=== PATIENT | male | born 1945 | race Caucasian/White ===

== ENCOUNTER → 2018-04-05 12:22 | Outpatient (CLI) | payer MEDICARE, OTHER, SELFPAY ==
--- NOTE | 2018-04-05 | DI.RAD.S_ITS ---
PROCEDURE: XR CHEST 2V INDICATIONS: DYSPENEA TECHNIQUE: 2 views of the chest were acquired. COMPARISON: [facility], CT, CT ANGIO CHEST ABD, 06/20/2017, 20:24. [facility], CR, CHEST 2VW, 01/09/2013, 15:27. FINDINGS: Surgical changes and devices: None. Lungs and pleura: No pleural effusions or pneumothorax. Lungs are clear. Mediastinum: Mediastinal contours are normal. Heart size is normal. Unchanged appearance of mild elevated right hemidiaphragm. Bones and chest wall: No suspicious bony abnormalities. Soft tissues appear unremarkable. IMPRESSION: No acute pulmonary process. Dictated by: Yolie Mcneill M.D. on 04/05/2018 at 15:35 Approved by: Yolie Mcneill M.D. on 04/05/2018 at 15:36
--- NOTE | 2018-04-06 16:24 | DI.NM.S_ITS ---
DATE OF SERVICE: 04/05/2018 PROCEDURE: Pharmacologic perfusion study. INDICATIONS: Angina pectoris with known history of anterior wall PR, PCI, hypertension, and hyperlipidemia. RADIOPHARMACEUTICAL: 26.5 mCi of technetium-99m Myoview IV was injected at stress, and 24.3 mCi of technetium-99m Myoview IV was injected at rest. CARDIAC STRESS: Patient underwent pharmacologic perfusion study under the supervision of an attending staff. The patient received IV Lexiscan as per standard protocol. The patient remained hemodynamically stable. Resting blood pressure 140/82, heart rate about 70 beats per minute. During stress, maximum heart rate reported to be 130. Baseline rhythm was sinus with QRS complexes in V1 to V2 with poor R-wave progression. During stress, there were no obvious inducible ischemic changes. There were occasional isolated PVCs without any ventricular tachycardia. Prior to stress test, patient had very mild left chest and upper back pain which remained there; however, 2 to 3 minutes into the recovery, the patient developed left arm heaviness and jaw pain without any ischemic changes on surface EKG. RAW DATA: There appears to be increased subdiaphragmatic activity. GATED STUDY: Resting LV ejection fraction 50% and stress LV ejection fraction about 55% with [id number] anterior wall and anteroapical hypokinesis. No transient ischemic dilatation. TID ratio 1.11, which is within normal limits. Resting LV end-diastolic volume 125 mL. Lung/heart ratio 0.29, which is within normal limits. MYOCARDIAL PERFUSION SCAN: Stress supine, resting supine, and stress prone images were compared to each other. It appears to be that patient has predominantly fixed moderate-sized severe perfusion defect of wwk-yg-zczhor anterior wall extending into the entire anteroapex and some portion of inferoapex as well as distal septum, consistent with njbvpltu-ka-[id number] LAD territory infarction. I don't see any obvious significant reversible ischemia. CONCLUSION: This is an abnormal myocardial perfusion study consistent with moderate-sized severe infarction of jab-ug-cxivlo anterior wall extending into the entire anteroapex, some portion of inferoapex as well as distal septum. There is no obvious reversible ischemia on perfusion scan. In recovery, patient had left arm heaviness and jaw pain suggestive of anginal episode without any ischemic EKG changes. Resting LV ejection fraction 50% and stress LV ejection fraction 55%. Clinical correlation is recommended. David Barnett - ASTRID/coral/javy doc#: [id number]/job#: [id number] dd: 04/06/2018 12:38:00 dt: 04/06/2018 15:05:00 DICTATING /COPIES TO: Brynn Aviles MD COPIES MNE: MAYELIN
== END ==
PROVIDERS: Visit Provider Internal Medicine Cardiovascular Disease
DX: I20.9 Angina pectoris, unspecified (principal); I10 Essential (primary) hypertension; E78.5 Hyperlipidemia, unspecified; R06.00 Dyspnea, unspecified
CPT/HCPCS: 71046; 78452; 93016; 93017; 93018; A9502; J2785

== ENCOUNTER → 2018-09-27 08:59 | Outpatient (CLI) | payer MEDICARE, OTHER, SELFPAY ==
--- NOTE | 2018-09-27 09:02 | DI.RAD.S_ITS ---
PROCEDURE: FL UPPER GI W AIR INDICATIONS: DYSPHAGIA COMPARISON: [facility], [place], [place] YOEL PERF SPECT R&S PHARM, 04/05/2018, 14:50. 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 No suspicious abdominal calcifications. Visualized solid organ contours appear normal. Bony structures appear unremarkable. Esophagus: Esophageal mucosa is normal on air-contrast views. On single-contrast views, there is normal esophageal peristalsis. No strictures, extrinsic mass effects, or diverticula. No hiatal hernia or elicited gastroesophageal reflux. There is normal transit of a calibrated barium tablet through the esophagus. Stomach: The stomach is normally distensible, with normal rugal fold thickness. No mucosal masses or ulcers. Pylorus and duodenal bulb appear normal in morphology. Duodenal folds are normal in thickness as well. IMPRESSION: 1. Normal upper GI exam. 2. The patient reports periodic aspiration episodes. Modified barium swallow with speech pathology may be helpful. Dictated by: Alo Bedoya M.D. on 09/27/2018 at 10:44 Approved by: Alo Bedoya M.D. on 09/27/2018 at 10:47
== END ==
PROVIDERS: Visit Provider Physician Assistant
DX: R13.10 Dysphagia, unspecified (principal)
CPT/HCPCS: 74247

== ENCOUNTER → 2018-10-24 12:45 | Outpatient (CLI) | payer MEDICARE, OTHER, SELFPAY ==
[2018-10-24 14:05] LABS: Estimated Glomerular Filt Rate > 60.0 mL/min (>60)
== END ==
PROVIDERS: Visit Provider Family Medicine
DX: N30.40 Irradiation cystitis without hematuria (principal); Z01.812 Encounter for preprocedural laboratory examination
CPT/HCPCS: 36415; 82565

== ENCOUNTER → 2018-10-26 08:45 | Outpatient (CLI) | payer OTHER, MEDICARE, SELFPAY ==
--- NOTE | 2018-10-26 | DI.CT.S_ITS ---
PROCEDURE: CT ABDOMEN PELVIS WO/W CON INDICATIONS: HEMATURIA TECHNIQUE: Optional 5 mm thick noncontrast images acquired from the diaphragm to the symphysis pubis. After the administration of intravenous contrast, 5 mm thick images acquired from the diaphragm to the symphysis pubis after a 10-minute delay. 2 mm thick coronal and sagittal reformats were then performed of the kidneys and ureters. For radiation dose reduction, the following was used: automated exposure control, adjustment of mA and/or kV according to patient size. COMPARISON: [facility], CT, CT ANGIO CHEST ABD, 06/20/2017, 20:24. FINDINGS: Image quality: Excellent. Lung bases: There is mild dependent atelectasis bilaterally. Heart size is normal. There is coronary arterial vascular calcification. There is a small hiatal hernia. Urinary system: There are 2 to 3 small nonobstructing stones within the left kidney measuring up to 2 mm. A punctate nonobstructing stone is also demonstrated in the right kidney. No hydronephrosis. There is mild nonspecific perinephric stranding redemonstrated bilaterally. There is symmetric bilateral renal enhancement. Multiple left renal cysts appear similar to the prior study. Renal calyces appear normal in morphology when filled with contrast without discrete filling defects. Opacified portions of both ureters demonstrate normal caliber. The urinary bladder is incompletely distended. No calcified bladder stones. Other solid organs: No focal hepatic lesions identified. Gallbladder appears within normal limits without calcified gallstones. Biliary system is non dilated. Pancreas enhances normally. Spleen is normal in size and enhancement. No adrenal nodules. Peritoneum and bowel: Bowel loops demonstrate normal wall thickness and caliber. The appendix is normal in appearance. There is colonic diverticulosis without acute diverticulitis. No free fluid or air. Nodes and vessels: No retroperitoneal or mesenteric adenopathy by size criteria. There is focal ectasia of the abdominal aorta are measuring up to 2.8 cm in anteroposterior dimension which appears stable in size compared to the prior study. 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 Abdominal wall: No ventral hernias. Pelvis: No pathologic free pelvic fluid. No inguinal hernias or adenopathy. Bones: No suspicious bony lesions. No vertebral body compression fractures. IMPRESSION: 1. Bilateral nephrolithiasis without evidence of obstructive uropathy or discrete mass lesions in the renal collecting systems. 2. Limited evaluation of the urinary bladder secondary to incomplete distention and incomplete opacification. Recommend correlation with cystoscopy if clinically indicated. 3. Diverticulosis without acute diverticulitis. 4. 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 Dictated by: Trae Price M.D. on 10/26/2018 at 11:48 Approved by: Trae Price M.D. on 10/26/2018 at 12:05
== END ==
PROVIDERS: PCP Physician Assistant; Visit Provider Family Medicine
DX: R31.9 Hematuria, unspecified (principal); N20.0 Calculus of kidney; N28.1 Cyst of kidney, acquired; K57.90 Diverticulosis of intestine, part unspecified, without perforation or abscess without bleeding; I77.811 Abdominal aortic ectasia
CPT/HCPCS: 74178; Q9967

== ENCOUNTER 2019-01-16 08:30 | Outpatient (RCR) | payer MEDICARE, OTHER, SELFPAY | END 2019-01-16 10:00 | LOC: CAR 08:30 | PROVIDERS: Visit Provider Internal Medicine Cardiovascular Disease | DX: I25.118 Atherosclerotic heart disease of native coronary artery with other forms of angina pectoris (principal) | CPT/HCPCS: 93798 ==

== ENCOUNTER 2020-05-21 15:05 | Emergency (ER) | payer MEDICARE, OTHER, SELFPAY ==
--- NOTE | 2020-05-21 | DI.RAD.S_ITS ---
PROCEDURE: XR SHOULDER LT MIN 2V INDICATIONS: SHOULDER PAIN TECHNIQUE: 3 views of the shoulder were acquired. COMPARISON: None. FINDINGS: Bones: No fractures or dislocations. No suspicious bony lesions. Visualized ribs appear intact. Mild to moderate degenerative changes of the left shoulder joints are present. Soft tissues: No suspicious soft tissue calcifications. IMPRESSION: Degenerative changes of the left shoulder. No fracture. Dictated by: Timmy Schroeder M.D. on 05/21/2020 at 15:10 Approved by: Timmy Schroeder M.D. on 05/21/2020 at 15:10
[2020-05-21 15:12] VITALS: BP 127/59; PULSE 66; RESP 15; TEMP 36.5; O2SAT 96; BMI 36.5
[2020-05-21 15:15] VITALS: BP 127/59; PULSE 65; O2SAT 97
--- NOTE | 2020-05-21 15:21 | DI.RAD.S_ITS ---
PROCEDURE: XR CHEST 1V INDICATIONS: chest pain TECHNIQUE: One view of the chest was acquired. COMPARISON: [facility], CR, XR CHEST 2V, 04/05/2018, 12:33. FINDINGS: Surgical changes and devices: None. Lungs and pleura: Lungs are clear. No pleural effusions or pneumothorax. Mediastinum: Mediastinal contours appear normal. Heart size is normal. Bones and chest wall: No suspicious bony lesions. Overlying soft tissues appear unremarkable. IMPRESSION: No acute disease Dictated by: Checo Deo M.D. on 05/21/2020 at 15:56 Approved by: Checo Doe M.D. on 05/21/2020 at 16:17
[2020-05-21 15:36] LABS: Add Manual Diff / Slide Review NO; Basophils Absolute Auto 0 /uL (0-100); Basophils Percent Auto 0.5 % (0-2); Eosinophils Absolute Auto 300 /uL (0-450); Eosinophils Percent Auto 4.2 % (2-4); Hemoglobin 13.8 g/dL (13.5-17.5); INR 1.1 (0.9-1.3); Lymphocytes Absolute Auto 2000 /uL (1100-4500); Lymphocytes Percent Auto 28.8 % (25-40); Mean Corpuscular HGB Conc 35.5 % (30-36); Mean Corpuscular Hemoglobin 32.1 PG (26-34); Mean Corpuscular Volume 90.3 fL (80-100); Monocytes Absolute Auto 800 /uL (0-900); Monocytes Percent Auto 10.9 % (3-14); Neutrophils Absolute Auto 3900 /uL (1500-7000); Neutrophils Percent Auto 55.6 % (50-75); Platelet Count 139 X10^3/uL (150-400); Prothrombin Time 12.6 SECONDS (10.1-12.7); Red Blood Cell Count 4.31 X10^6/uL (4.5-5.9)
[2020-05-21 15:39] LABS: PTT Partial Thromboplastin Tim 33 SECONDS (26.4-36.2)
[2020-05-21 15:40] LABS: Alanine Aminotransferase 30 IU/L (<50); Albumin 3.9 g/dL (3.5-5.0); Albumin Globulin Ratio 1.4 (1.0-2.8); Alkaline Phosphatase 75 U/L (38-126); Aspartate Aminotransferase 39 IU/L (17-59); BUN Creatinine Ratio 18.3 (6-22); Bilirubin Total 0.6 mg/dL (0.2-1.3); Blood Urea Nitrogen 23 mg/dL (9-20); Calcium 8.8 mg/dL (8.4-10.2); Carbon Dioxide 27 mmol/L (22-32); Chloride 105 mmol/L (98-107); Creatine Kinase 202 U/L (55-170); Estimated Glomerular Filt Rate 55.6 mL/min (>60); Globulin 2.8 g/dL (1.7-4.1); Glucose 87 mg/dL (80-110); HEMOLYSIS < 15 (0-50); Lipase 160 U/L (23-300); Potassium 4.3 mmol/L (3.4-5.1); Sodium 138 mmol/L (137-145); Total Protein 6.7 g/dL (6.3-8.2)
[2020-05-21 15:51] LABS: Troponin I < 0.012 ng/mL (0.01-0.034)
[2020-05-21 15:56] LABS: CKMB % Relative Index 1.6 % (1.5-5.0); Creatine Kinase MB 3.16 ng/mL (<2.37)
[2020-05-21 16:00] VITALS: PULSE 59; RESP 15; O2SAT 96
--- NOTE | 2020-05-21 16:25 | PC.NURSE ---
reports left arm, shoulder and jaw pain. Denies acute chest pain or SOB. History of [facility]
[2020-05-21 16:30] VITALS: PULSE 57; RESP 21; O2SAT 96
--- NOTE | 2020-05-21 16:54 | ED.EXTPRO ---
HPI - Extremity Problem General Chief complaint: Extremity Problem,Nontraumatic Stated complaint: LEFT SHOULDER PAIN Time Seen by Provider: 05/21/20 15:26 Source: patient Mode of arrival: Ambulatory Limitations: no limitations History of Present Illness HPI Narrative: The patient is a 74-year-old male with history of coronary artery disease and 7 stents presenting with left shoulder and arm pain. He says he was in his wood shop holding and working on can things within his arm started hurting. It is definitely worse with movement. He denies numbness tingling or weakness. He did have some jaw discomfort what he was talking to his he said it only lasted briefly. He says it was not cardiac related he said it was only seconds. He actually denies any chest pain or shortness of breath. Pain in his left arm is reproducible. MD Complaint: extremity pain Location: left and upper extremity Radiation: none Related Data Allergies Allergy/AdvReac Type Severity Reaction Status Date / Time niacin Allergy Verified 05/21/20 15:19 Review of Systems Review of Systems Narrative: GENERAL: Denies chills, fatigue, malaise, fever, sweats, travel HEENT: Denies sinus pain, ear pain, sore throat, difficulty swallowing, neck pain RESPIRATORY: Denies dyspnea, cough, wheezing, hemoptysis, sputum. CARDIOVASCULAR: See HPI GASTROINTESTINAL: Denies nausea, vomiting, abdominal pain, diarrhea, constipation, melena. : Denies dysuria, frequency, incontinence, hematuria, urinary retention, flank pain. MUSCULOSKELETAL: See HPI SKIN: No rash, no erythema, no pruritus NEUROLOGIC: Denies weakness, dizziness, headache, numbness, change in speech, confusion PSYCHIATRIC: No concerning psychosocial issues. 12 point review of systems is negative except for those stated above and HPI Patient History Medical History Coronary artery disease (Acute) Social History Smoking Status: Unknown if ever smoked Smoking Status: Unknown if ever smoked alcohol intake frequency: holidays/special occasions only Substance Use Type: does not use Exam Initial Vital Signs Initial Vital Signs: Vital Signs Temperature 97.7 F 05/21/20 15:12 Pulse Rate 66 05/21/20 15:12 Respiratory Rate 15 05/21/20 15:12 Blood Pressure 127/59 L 05/21/20 15:12 Pulse Oximetry 96 05/21/20 15:12 GENERAL: Alert pleasant well-appearing elderly male and in no acute distress. HEENT: Head atraumatic,EOMI, pupils reactive CARDIOVASCULAR: Regular rate and rhythm without murmurs, rubs or gallops. RESPIRATORY: Breath sounds equal bilaterally, no wheezes rales or rhonchi. ABDOMEN: Soft, nontender. Normoactive bowel sounds all 4 quadrants. No guarding or rebound. EXTREMITIES: Normal range of motion, no clubbing or edema. Neurovascularly intact Left shoulder flexion reproduce his pain there is moment that he has pain but he is able to move passed it and get his arm completely above his head. He has good supination pronation at the elbow good flexion extension of the elbow neurovascularly he is intact sensation over the deltoid intact. Palpation of the upper arm reproduces his pain NEUROLOGICAL: Alert and oriented x4.Normal gait and speech. Cranial nerves II through XII grossly intact. SKIN: Warm, dry, no laceration, no petechiae, no rashes or lesions. Course Orders Ordered: ED Orders 05/21/20 15:16 Complete Blood Count AUTO DIFF Stat Comprehensive Metabolic Panel Stat Lipase Stat Partial Thromboplastin Time Stat Prothrombin Time INR Stat Troponin & CK Cardiac Panel Stat 05/21/20 15:21 XR chest 1V Stat EKG-12 Lead Stat Vital Signs Vital signs: Vital Signs - 8 hr 05/21/20 15:12 05/21/20 15:15 05/21/20 16:00 Temperature 97.7 F Pulse Rate 66 65 59 L Respiratory Rate 15 15 Blood Pressure 127/59 L 127/59 L Pulse Oximetry 96 97 96 05/21/20 16:30 05/21/20 17:16 Temperature Pulse Rate 57 L 610 H Respiratory Rate 21 Blood Pressure 137/73 Pulse Oximetry 96 98 MDM - Extremity (Nontraumatic) Lab Data Result diagrams: 05/21/20 15:16 05/21/20 15:16 Labs: Lab Results 05/21/20 05/21/20 05/21/20 Range/Units 15:16 15:16 15:16 WBC 7.0 (4.5-11.0) X10^3/uL RBC 4.31 L (4.5-5.9) X10^6/uL Hgb 13.8 (13.5-17.5) g/dL Hct 39.0 L (41-53) % MCV 90.3 (80-100) fL MCH 32.1 (26-34) PG MCHC 35.5 (30-36) % RDW 13.0 (11.6-14.8) % Plt Count 139 L (150-400) X10^3/uL Neut % (Auto) 55.6 (50-75) % Lymph % (Auto) 28.8 (25-40) % Pike % (Auto) 10.9 (3-14) % Eos % (Auto) 4.2 H (2-4) % Baso % (Auto) 0.5 (0-2) % Neut # (Auto) 3900 (9869-8509) /uL Lymph # (Auto) 2000 (1711-4194) /uL Pike # (Auto) 800 (0-900) /uL Eos # (Auto) 300 (0-450) /uL Baso # (Auto) 0 (0-100) /uL PT 12.6 (10.1-12.7) SECONDS INR 1.1 (0.9-1.3) APTT 33 (26.4-36.2) SECONDS Sodium 138 (137-145) mmol/L Potassium 4.3 (3.4-5.1) mmol/L Chloride 105 (98-107) mmol/L Carbon Dioxide 27 (22-32) mmol/L BUN 23 H (9-20) mg/dL Creatinine 1.26 H (0.66-1.25) mg/dL Estimated GFR 55.6 L (>60) mL/min BUN/Creatinine Ratio 18.3 (6-22) Glucose 87 (80-110) mg/dL Calcium 8.8 (8.4-10.2) mg/dL Total Bilirubin 0.6 (0.2-1.3) mg/dL AST 39 (17-59) IU/L ALT 30 (<50) IU/L Alkaline Phosphatase 75 (38-126) U/L Total Creatine Kinase 202 H (55-170) U/L CK-MB (CK-2) 3.16 H (<2.37) ng/mL CK-MB (CK-2) Rel Index 1.6 (1.5-5.0) % Troponin I < 0.012 (0.01-0.034) ng/mL Total Protein 6.7 (6.3-8.2) g/dL Albumin 3.9 (3.5-5.0) g/dL Globulin 2.8 (1.7-4.1) g/dL Albumin/Globulin Ratio 1.4 (1.0-2.8) Lipase 160 (23-300) U/L Imaging Data CT scan - chest: Radiologist's Impression: PROCEDURE: XR CHEST 1V INDICATIONS: chest pain TECHNIQUE: One view of the chest was acquired. COMPARISON: Located [facility], , XR CHEST 2V, 04/05/2018, 12:33. FINDINGS: Surgical changes and devices: None. Lungs and pleura: Lungs are clear. No pleural effusions or pneumothorax. Mediastinum: Mediastinal contours appear normal. Heart size is normal. Bones and chest wall: No suspicious bony lesions. Overlying soft tissues appear unremarkable. IMPRESSION: No acute disease Dictated by: Checo Doe M.D. on 05/21/2020 at 15:56 Approved by: Checo Doe M.D. on 05/21/2020 at 16:17 Extremity x-ray #1: Radiologist's Impression: PROCEDURE: XR SHOULDER LT MIN 2V INDICATIONS: SHOULDER PAIN TECHNIQUE: 3 views of the shoulder were acquired. COMPARISON: None. FINDINGS: Bones: No fractures or dislocations. No suspicious bony lesions. Visualized ribs appear intact. Mild to moderate degenerative changes of the left shoulder joints are present. Soft tissues: No suspicious soft tissue calcifications. IMPRESSION: Degenerative changes of the left shoulder. No fracture. Dictated by: Timmy Schroeder M.D. on 05/21/2020 at 15:10 ECG Data Attestation EKG: I personally reviewed and interpreted this ECG as follows: Prior ECG tracings: not available for review Interpretation: Normal sinus rhythm rate 59 p.r. interval 186 QRS [address] elevation depression or T-wave inversion no priors to compare MDM Narrative Medical decision making narrative: The pain is likely musculoskeletal it is reproducible with movement and palpation. Troponin and EKG are negative. Recommend follow-up with PCP Discharge Plan Departure Patient Disposition: Home Clinical Impression: Left shoulder strain Qualifiers: Encounter type: initial encounter Qualified Code(s): S46.912A - Strain of unspecified muscle, fascia and tendon at shoulder and upper arm level, left arm, initial encounter Discharge Date/Time: 05/21/20 17:17 Instructions: Shoulder Sprain Activity Restrictions/Additional Instructions: *You have been diagnosed with left shoulder sprain *What to do: At this time I believe this to be musculoskeletal problem rather than cardiac. Recommend ice or heat 30 minutes at a touch of *Continue to take medications as directed Tylenol 650 mg every 4-6 hours if needed for pain *Follow up with your primary care provider in 2-3 days *Return to ER if you should have a chest pain, weakness numbness, tingling or any new, worsening or concerning symptoms Referrals: Shefali Man PA-C [Primary Care Provider] -
[2020-05-21 17:16] VITALS: BP 137/73; PULSE 610; O2SAT 98
== END 2020-05-21 17:17 | disposition home or self-care (01) ==
PROVIDERS: Emergency Provider Emergency Medicine; PCP Physician Assistant
DX: S46.912A Strain of unspecified muscle, fascia and tendon at shoulder and upper arm level, left arm, initial encounter (principal); R07.9 Chest pain, unspecified
CPT/HCPCS: 36415; 71045; 73030; 80053; 82550; 82553; 83690; 84484; 85025; 85610; 85730; 93005; 99284

== ENCOUNTER → 2022-03-29 11:34 | Outpatient (CLI) | payer MEDICARE, OTHER, SELFPAY ==
--- NOTE | 2022-03-29 11:35 | DI.RAD.S_ITS ---
PROCEDURE: XR KNEE RT 3V INDICATIONS: fall TECHNIQUE: 3 views of the knee were acquired. COMPARISON: [facility], , KNEE 3V RIGHT, 09/05/2011, 11:18. [facility], , KNEE 1-2 VIEWS LEFT, 12/04/2013, 15:48. FINDINGS: Bones: No acute, displaced fracture. 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 The medial and lateral joint spaces appear maintained. Ossific densities project in the intercondylar region, favored to represent intra-articular bodies. Soft tissues: Small joint effusion. 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 Dictated by: Marcos Romo M.D. on 03/29/2022 at 13:16 Approved by: Marcos Romo M.D. on 03/29/2022 at 13:17
--- NOTE | 2022-03-29 11:35 | DI.RAD.S_ITS ---
PROCEDURE: XR SHOULDER LT MIN 2V INDICATIONS: Shoulder pain. TECHNIQUE: 2 views of the shoulder were acquired. COMPARISON: [facility], CR, XR SHOULDER LT MIN 2V, 05/21/2020, 15:40. FINDINGS: Bones: No fractures or dislocations. No suspicious bony lesions. Osteophytosis about the AC joint, which remains patent. Visualized ribs appear intact. Soft tissues: No suspicious soft tissue calcifications. IMPRESSION: AC joint degeneration. Dictated by: Marcos Romo M.D. on 03/29/2022 at 13:13 Approved by: Marcos Romo M.D. on 03/29/2022 at 13:16
== END ==
PROVIDERS: PCP Physician Assistant; Referring Provider Physician Assistant; Visit Provider Physician Assistant
DX: M19.012 Primary osteoarthritis, left shoulder (principal); M17.11 Unilateral primary osteoarthritis, right knee; M25.60 Stiffness of unspecified joint, not elsewhere classified; M25.512 Pain in left shoulder
CPT/HCPCS: 73030; 73562

== ENCOUNTER → 2022-10-07 12:04 | Outpatient (CLI) | payer MEDICARE, OTHER, SELFPAY ==
[2022-10-07 12:46] LABS: Hematocrit 39.6 % (41-53); Hemoglobin 13.4 g/dL (13.5-17.5); Mean Corpuscular HGB Conc 33.8 % (30-36); Mean Corpuscular Hemoglobin 30.8 PG (26-34); Mean Corpuscular Volume 90.9 fL (80-100); Platelet Count 153 X10^3/uL (150-400); Red Blood Cell Count 4.35 X10^6/uL (4.5-5.9); Red Cell Distribution Width 13.3 % (11.6-14.8); White Blood Cell Count 6.1 X10^3/uL (4.5-11.0)
[2022-10-07 12:57] LABS: Hemoglobin A1C% w Est Avg Glu 6.1 % (4.0-6.0)
[2022-10-07 13:16] LABS: Alanine Aminotransferase 29 IU/L (<50); Albumin 3.8 g/dL (3.5-5.0); Albumin Globulin Ratio 1.3 (1.0-2.8); Alkaline Phosphatase 69 U/L (38-126); Aspartate Aminotransferase 30 IU/L (17-59); BUN Creatinine Ratio 19.5 (6-22); Bilirubin Total 0.6 mg/dL (0.2-1.3); Blood Urea Nitrogen 26 mg/dL (9-20); Calcium 8.6 mg/dL (8.4-10.2); Carbon Dioxide 30 mmol/L (22-32); Chloride 102 mmol/L (98-107); Cholesterol 110 mg/dL (140-199); Estimated Glomerular Filt Rate 55 mL/min (>60); Globulin 2.9 g/dL (1.7-4.1); Glucose 103 mg/dL (80-110); HDL Cholesterol 42 mg/dL (40-60); LDL Cholesterol Calculated 52 mg/dL (<100); Potassium 3.9 mmol/L (3.4-5.1); Sodium 139 mmol/L (137-145); Total Protein 6.7 g/dL (6.3-8.2); Triglycerides 78 mg/dL (35-150)
[2022-10-07 13:43] LABS: TSH w/ Reflex to FT4 1.07 uIU/mL (0.47-4.68)
[2022-10-07 13:49] LABS: HEMOLYSIS < 15 (0-50); Prostate Specific Antigen 2.84 ng/mL (0.10-4.00)
== END ==
PROVIDERS: PCP Internal Medicine; Referring Provider Internal Medicine; Visit Provider Internal Medicine
DX: E78.2 Mixed hyperlipidemia (principal); R73.01 Impaired fasting glucose; I10 Essential (primary) hypertension; N40.1 Benign prostatic hyperplasia with lower urinary tract symptoms; I25.118 Atherosclerotic heart disease of native coronary artery with other forms of angina pectoris; N13.8 Other obstructive and reflux uropathy
CPT/HCPCS: 36415; 80053; 80061; 83036; 84153; 84443; 85027

== ENCOUNTER → 2022-11-24 09:14 | Outpatient (CLI) | payer MEDICARE, OTHER, SELFPAY ==
[2022-11-24 11:14] LABS: COVID19 -Nasal RAPID Negative (Negative)
== END ==
PROVIDERS: PCP Internal Medicine; Visit Provider Surgery
DX: Z20.822 Contact with and (suspected) exposure to COVID-19 (principal); Z01.812 Encounter for preprocedural laboratory examination
CPT/HCPCS: 87635; C9803

== ENCOUNTER 2022-11-25 09:40 | Day surgery (SDC) | payer MEDICARE, OTHER, SELFPAY ==
--- NOTE | 2022-11-25 | PATH_ITS ---
[facility] Accession Number: [id number] No. of containers..05 Tissue . 01 Material submitted: . PART A: cecum - CECAL POLYP PART B: colon - ASCENDING COLON POLYP PART C: hepatic flexure - HEPATIC FLEXURE POLYP PART D: colon - DESCENDING COLON POLYP PART E: sigmoid colon - SIGMOID COLON POLYP . 01 Diagnosis: A. Cecum, Polyp, Biopsy: Tubular adenoma. . B. Ascending Colon, Polyp, Biopsy: Tubulovillous adenoma. . C. Hepatic Flexure, Polyp, Biopsy: Tubular adenoma. . D. Descending Colon, Polyp, Biopsy: Tubular adenoma. . E. Sigmoid Colon, Polyp, Biopsy: Tubular adenoma. [facility] 11/28/2022 1605 Local . 01 Electronically signed: . Kika Delcid MD, Pathologist NPI- [id number] . 01 Gross description: . Part A: CECAL POLYP: Received in formalin are 4 fragment(s) of palma, soft tissue measuring 0.3 x 0.2 x 0.2 cm to 0.2 x 0.1 x 0.1 cm submitted entirely in 1 cassette(s) Part B: ASCENDING COLON POLYP: Received in formalin are multiple fragment(s) of palma, soft tissue measuring 1.2 x 0.5 x 0.1 cm in aggregate submitted entirely in 1 cassette(s) Part C: HEPATIC FLEXURE POLYP: Received in formalin are 2 fragment(s) of palma, soft tissue measuring 0.4 x 0.3 x 0.2 cm to 0.2 x 0.1 x 0.1 cm submitted entirely in 1 cassette(s) Part D: DESCENDING COLON POLYP: Received in formalin is 1 fragment(s) of palma, soft tissue measuring 0.3 x 0.2 x 0.2 cm submitted entirely in 1 cassette(s) Part E: SIGMOID COLON POLYP: Received in formalin is 1 fragment(s) of palma, soft tissue measuring 0.4 x 0.3 x 0.3 cm submitted entirely in 1 cassette(s) /CPE 11/26/2022 0917 Local . 01 Pathologist provided ICD-10: D12.0, D12.2, D12.3, D12.4, D12.5 . 01 CPT . 469481, [id number], [id number], [id number], [id number] Specimen Comment: A courtesy copy of this report has been sent to [facility] Pathology Performed at: 01 [facility] [address] [address], [place], [place] [id number] MD Trae Nuñez MD Phone: [phone]
[2022-11-25 10:07] VITALS: BP 108/67; PULSE 83; RESP 16; TEMP 36.4; O2SAT 97; BMI 41.5
[2022-11-25] MEDS: LACTATED RINGERS 1,000 ML 42 ML IV (10:36)
--- NOTE | 2022-11-25 11:10 | PM.HP.1 ---
History of Present Illness History of Present Illness Chief complaint: [facility] [place] Narrative: Mr. Lynn presents today for a screening colonoscopy. He is had several scopes in the past. He had a plant health care technician to use the scope him in [place] every 2 years and would find polyps very often. [place] about 5-7 years ago and no polyps were found to his knowledge. He has been getting [place]olog[place] screening from the [place] and his most recent came back positive. The reason he is here now. He does have a family history with a grandmother with colon cancer. His mother of some type of disseminated abdominal cancer at the age of 56. She had had breast cancer which was treated years ago. He is never had any abdominal surgeries. He does have some symptoms of constipation and straining and a little bit of blood when that happens he thinks that perhaps he has some hemorrhoids. He just started taking fiber and takes Metamucil twice a day for the last few months this does seem to be helping. Patient History Medical History (Updated 11/25/22 @ 11:13 by She Benavides MD) Acne (~1959) Advanced directives, counseling/discussion BPH w urinary obs/LUTS Chicken pox (~1949) Chronic back pain Colon polyps (~1979) Coronary artery disease (~1989) Erectile dysfunction Essential hypertension GERD without esophagitis Hearing loss (~1969) Hemorrhoid (~1979) History of colonic polyps Impaired fasting glucose Low testosterone (~2001) Measles (~1966) Medicare annual wellness visit, initial Mixed hyperlipidemia Mumps (~1949) Myocardial infarction (~1989) Obesity (BMI 35.0-39.9 without comorbidity) Obstructive sleep apnea Primary osteoarthritis involving multiple joints Skin cancer (~2020) Tinnitus (~1989) Venous (peripheral) insufficiency Surgical History Anesthesia History of angioplasty History of left knee replacement (~2013) Family & Social History Family History Father History of heart disease Mother Cancer Social History: household members spouse Tobacco & Substance use: Smoking Status Former smoker alcohol intake current alcohol intake frequency holiday/special occasion Substance Use Type does not use Meds Home Medications and Allergies Home Medications Medication Instructions Recorded Confirmed Type aspirin 81 mg chewable tablet 81 mg PO DAILY 03/29/22 11/25/22 History cholecalciferol (vitamin D3) 4,000 unit PO DAILY 09/19/22 11/25/22 History clopidogrel 75 mg PO DAILY 09/19/22 11/25/22 History isosorbide mononitrate 30 mg PO DAILY 09/19/22 11/25/22 History losartan 25 mg PO DAILY 09/19/22 11/25/22 History mecobalamin (vitamin B12) 1,000 mcg PO DAILY 09/19/22 11/25/22 History metoprolol succinate 100 mg PO DAILY 09/19/22 11/25/22 History nitroglycerin 0.4 mg sublingual 0.4 mg sublingual Q5M PRN 09/19/22 09/19/22 History tablet omeprazole 20 mg PO DAILY 09/19/22 11/25/22 History rosuvastatin 40 mg PO DAILY 09/19/22 11/25/22 History spironolactone 25 mg PO DAILY 09/19/22 11/25/22 History tamsulosin 0.4 mg PO DAILY 09/19/22 11/25/22 History furosemide 25 mg PO DAILY 11/25/22 11/25/22 History Allergies Allergy/AdvReac Type Severity Reaction Status Date / Time niacin AdvReac Mild flushed Verified 11/25/22 09:48 skin Exam Vital Signs (past 8 hours): - 11/25/22 10:07 Temperature 97.6 F Pulse Rate 83 Respiratory Rate 16 Blood Pressure 108/67 Pulse Oximetry 97 Oxygen Delivery Method Room Air Oxygen Delivery Method Room Air Const General: cooperative and healthy appearing [facility] Head: normal to inspection Resp Effort & Inspection: normal respiratory effort and able to speak in complete sentences Cardio Pulses: radial pulses present GI Palpation: soft and No tender Assessment & Plan Assessment and plan (1) Screening for colon cancer: Status: Acute Assessment & Plan narrative: Mr. Lynn presents today for screening. I discussed with him risks benefits and alternatives of a screening colonoscopy he understands the risks are including but not limited to incomplete examination bleeding and injury to the colon. He would like to proceed. Time Spent With Patient Critical Care time: I spent a total of [] minutes of critical care time on this patient's care today; this time is exclusive of procedural time.
--- NOTE | 2022-11-25 12:16 | P.OP.COLON_ITS ---
Procedure & Clinicians Study performed: Colonoscopy Same procedure as scheduled: Yes Indications: Screening, positive Cologuard. Surgeon: She Benavides Procedure Notes Procedure in detail: Patient was taken to the endoscopy suite and placed in a left lateral decubitus position. A time-out was performed. Conscious sedation was performed with the help of an anesthesiologist. A digital rectal exam was performed the prostate was palpated it was smooth. There were no strictures or masses. Colonoscope was introduced into the anal canal and advanced through to the cecum. A photograph was taken of the appendiceal orifice. The prep was good it was a [place] bowel prep 2. The scope was then withdrawn slowly from the cecum. There were 2 separate cecal polyps which were biopsied with forceps and sent together in a specimen jar. Both of these were quite small. There was a 2nd polyp seen in the ascending colon which was slightly larger though probably still less than 1 cm and was biopsied with a snare. Again at the hepatic flexure there was another similarly sized polyp which was taken with a snare and forceps. Next a descending colon polyp that was very tiny was taken forceps. And finally another small polyp was taken in the sigmoid colon again forceps. Overall this is a total of 6 polyps that are probably all less than 1 cm in size. Due to the number of polyps the most likely recommendation for follow-up is going to be 3-5 years, though pathologic examination of polyps is necessary for a final recommendation. There were scattered diverticula throughout the sigmoid colon. The scope was retroflexed and the hemorrhoidal piles looked within normal limits. Complications: none
[2022-11-25 12:21] VITALS: BP 108/70; PULSE 77; RESP 15; TEMP 36.2; O2SAT 95
[2022-11-25 12:26] VITALS: BP 109/63; PULSE 76; RESP 16; O2SAT 96
[2022-11-25 12:31] VITALS: BP 93/56; PULSE 73; RESP 17; O2SAT 97
[2022-11-25 12:36] VITALS: BP 99/64; PULSE 64; RESP 16; TEMP 36.3; O2SAT 96
== END 2022-11-25 12:50 | disposition home or self-care (01) ==
PROVIDERS: Surgery; PCP Internal Medicine; Referring Provider Surgery; Visit Provider Surgery
PROC: 0DJD8ZZ Inspection of Lower Intestinal Tract, Via Natural or Artificial Opening Endoscopic (ICD-10-PCS; CPT 45378; principal; 2022-11-25 10:45)
DX: Z12.11 Encounter for screening for malignant neoplasm of colon (principal); R19.5 Other fecal abnormalities; K57.30 Diverticulosis of large intestine without perforation or abscess without bleeding; D12.0 Benign neoplasm of cecum; D12.2 Benign neoplasm of ascending colon; D12.3 Benign neoplasm of transverse colon; D12.4 Benign neoplasm of descending colon; D12.5 Benign neoplasm of sigmoid colon
CPT/HCPCS: 45385; 45380; J2704

== ENCOUNTER → 2023-04-27 06:32 | Outpatient (CLI) | payer MEDICARE, OTHER, SELFPAY ==
[2023-04-27 09:01] LABS: Aspartate Aminotransferase 27 IU/L (17-59); BUN Creatinine Ratio 13.4 (6-22); Blood Urea Nitrogen 19 mg/dL (9-20); Calcium 8.3 mg/dL (8.4-10.2); Carbon Dioxide 31 mmol/L (22-32); Chloride 101 mmol/L (98-107); Cholesterol 120 mg/dL (140-199); Estimated Glomerular Filt Rate 50 mL/min (>60); Glucose 111 mg/dL (80-110); HDL Cholesterol 45 mg/dL (40-60); HEMOLYSIS < 15 (0-50); LDL Cholesterol Calculated 58 mg/dL (<100); Potassium 3.9 mmol/L (3.4-5.1); Sodium 139 mmol/L (137-145); Triglycerides 84 mg/dL (35-150)
[2023-04-27 09:04] LABS: Vitamin D 25 Hydroxy (D3) 64.3 ng/mL (30.0-100.0)
[2023-04-28 08:44] LABS: x Labcorp Estim. Avg Glu (eAG) 126 mg/dL (.)
[2023-04-30 04:20] LABS: Calcium 8.5 mg/dL (8.6-10.2); Parathyroid Hormone, Intact 84 pg/mL (15-65)
== END ==
PROVIDERS: PCP Internal Medicine; Referring Provider Internal Medicine; Visit Provider Internal Medicine
DX: E78.2 Mixed hyperlipidemia; N18.31 Chronic kidney disease, stage 3a; I10 Essential (primary) hypertension; E55.9 Vitamin D deficiency, unspecified; R73.01 Impaired fasting glucose
CPT/HCPCS: 36415; 80048; 80061; 82306; 82310; 83036; 83970; 84450

== ENCOUNTER 2023-09-13 08:37 | Observation (INO) | payer MEDICARE, OTHER, SELFPAY ==
[2023-09-13] VITALS (8 sets, daily range): BP systolic 115–168; BP diastolic 62–73; PULSE 58–71; RESP 16–20; TEMP 36.1–36.7; O2SAT 93–98; BMI 36.1
--- NOTE | 2023-09-13 | DI.CT.S_ITS ---
PROCEDURE: CT ANGIO HEAD AND NECK INDICATIONS: CONFUSION TECHNIQUE: After the administration of intravenous contrast, 1 mm thick sections acquired from the aortic arch through the [place]. 3-dimensional dglsvym-esghnyyxu-tadzkaysbu (MIP) and/or volume rendering reformats were acquired of the central intracranial vasculature and neck separately. For radiation dose reduction, the following was used: automated exposure control, adjustment of mA and/or kV according to patient size. COMPARISON: [facility], CT, CT STROKE, 09/13/2023, 8:41. FINDINGS: Image quality: Diagnostic. BRAIN: Please see separately dictated CT Brain report of 09/13/23. HEAD CT ANGIOGRAPHY: Anterior circulation: Intracranial internal carotid arteries are normal in size and flow. The flow within the paired anterior cerebral arteries is normal and symmetric. The flow within the middle cerebral arteries is normal and symmetric. The anterior communicating artery is seen. No aneurysms are seen. Posterior circulation: Visualized portions of the vertebral arteries demonstrate normal caliber, and join to form a normal appearing basilar artery. Flow within the posterior cerebral arteries is normal and symmetric. No aneurysms are seen. NECK CT ANGIOGRAPHY: Carotid system: The great vessels demonstrate a conventional anatomy as they arise from the aortic arch. The origins of the common carotid arteries appear patent. The common carotid arteries demonstrate normal caliber and courses. The bifurcation regions are both widely patent. The internal carotid arteries demonstrate normal calibers and courses. Posterior circulation: The origins of the vertebral arteries both appear widely patent. The more superior extracranial portions of both vertebral arteries also demonstrate normal courses and calibers. They join to form a normal appearing basilar artery. Soft tissues: Visualized neck soft tissues demonstrate no suspicious abnormalities. Bones: No suspicious bony lesions. Visualized cervical spine appears normally aligned. IMPRESSION: 1. See separate CT Brain report 09/13/23. 2. No areas of hemodynamically significant stenosis, vascular occlusion or aneurysmal dilation within the anterior circulation. 3.No areas of hemodynamically significant stenosis, vascular occlusion or aneurysmal dilation within the posterior circulation. 4. No areas of hemodynamically significant stenosis, vascular occlusion or aneurysmal dilation within the neck vasculature. Any quantitative measurements of stenosis were performed using NASCET criteria. Dictated by: Yolie Mcneill M.D. on 09/13/2023 at 9:27 Approved by: Yolie Mcneill M.D. on 09/13/2023 at 9:36
--- NOTE | 2023-09-13 08:38 | DI.CT.S_ITS ---
PROCEDURE: CT STROKE INDICATIONS: Positive BE-FAST, Stroke symptoms TECHNIQUE: Noncontrast 4.5 mm thick angled axial sections acquired from the foramen magnum to the vertex, with coronal reformats. For radiation dose reduction, the following was used: automated exposure control, adjustment of mA and/or kV according to patient size. COMPARISON: None. FINDINGS: Image quality: Excellent. CSF spaces: Basal cisterns are patent. No extra-axial fluid collections. The ventricles are symmetric in size and shape. Brain: No intracranial bleeds or masses. There is cerebral volume loss for age, with resultant ventricular and sulcal prominence. There are periventricular and deep white matter chronic small vessel ischemic changes. There is intracranial internal carotid artery atherosclerosis. Skull and face: Calvarium and visualized facial bones appear intact, without suspicious lesions. Sinuses: Visualized sinuses and mastoids are clear. IMPRESSION: No acute intracranial pathology. Findings discussed with Dr. Galvan on 09/13/2013 at 8:52 a.m.. This study fulfills neurological imaging criteria for inclusion or exclusion of acute stroke therapies based on available published neurological guidelines. Dictated by: See Mendoza M.D. on 09/13/2023 at 8:50 Approved by: See Mendoza M.D. on 09/13/2023 at 8:53
--- NOTE | 2023-09-13 08:38 | DI.RAD.S_ITS ---
PROCEDURE: XR CHEST 1V INDICATIONS: Possible stroke TECHNIQUE: One view of the chest was acquired. COMPARISON: [facility], CR, XR CHEST 1V, 05/21/2020, 15:30. [facility], CR, XR CHEST 2V, 04/05/2018, 12:33. FINDINGS: Surgical changes and devices: None. Lungs and pleura: Lungs are clear. No pleural effusions or pneumothorax. Mediastinum: Mediastinal contours appear normal. Heart size is normal. Bones and chest wall: No suspicious bony lesions. Overlying soft tissues appear unremarkable. IMPRESSION: No acute cardiopulmonary abnormality. Dictated by: Rocky Rivero M.D. on 09/13/2023 at 9:05 Approved by: Rocky Rivero M.D. on 09/13/2023 at 9:07
--- NOTE | 2023-09-13 08:51 | ED_ITS ---
HPI - Neuro Symptoms/Deficit General Chief Complaint: Neuro Symptoms/Deficit Stated Complaint: Stroke Time Seen by Provider: 09/13/23 08:39 History of Present Illness HPI Narrative: 77-year-old male with history of previous [place], congestive heart failure, on Plavix presents by EMS from home for garbled speech. Patient woke up this morning normally and had a conversation with his . Of note, patient does not currently have his teeth in, but EMS reports states that patient is normally conversant without his teeth. At 730am patient attempted to speak to but his speech was noted to be garbled and unintelligible. En route patient's Accu-Chek 122. EMS reported that just as a pulled into the hospital patient was able to intelligibly state ?I do not like going to hospitals?. Related Data Home Medications Medication Instructions Recorded Confirmed aspirin 81 mg chewable tablet 81 mg PO DAILY 03/29/22 03/13/23 cholecalciferol (vitamin D3) 4,000 unit PO DAILY 09/19/22 03/13/23 clopidogrel 75 mg PO DAILY 09/19/22 03/13/23 isosorbide mononitrate 30 mg PO DAILY 09/19/22 03/13/23 losartan 25 mg PO DAILY 09/19/22 03/13/23 mecobalamin (vitamin B12) 1,000 mcg PO DAILY 09/19/22 03/13/23 metoprolol succinate 100 mg PO DAILY 09/19/22 03/13/23 nitroglycerin 0.4 mg sublingual 0.4 mg sublingual Q5M PRN 09/19/22 03/13/23 tablet omeprazole 20 mg PO DAILY 09/19/22 03/13/23 rosuvastatin 40 mg PO DAILY 09/19/22 03/13/23 spironolactone 25 mg PO DAILY 09/19/22 03/13/23 tamsulosin 0.4 mg PO DAILY 09/19/22 03/13/23 furosemide 25 mg PO DAILY 11/25/22 03/13/23 Allergies Allergy/AdvReac Type Severity Reaction Status Date / Time niacin AdvReac Mild flushed Verified 09/13/23 09:29 skin Review of Systems Review of Systems Narrative: Negative except as noted above Patient History Medical History (Updated 09/13/23 @ 10:24 by Merly Galvan MD) Systolic CHF, chronic Stage 3a chronic kidney disease (CKD) COVID-19 virus infection Venous (peripheral) insufficiency Impaired fasting glucose History of colonic polyps Obesity (BMI 35.0-39.9 without comorbidity) Obstructive sleep apnea Primary osteoarthritis involving multiple joints Erectile dysfunction BPH w urinary obs/LUTS GERD without esophagitis Mixed hyperlipidemia Essential hypertension Acne (~1959) Chronic back pain Mumps (~1949) Measles (~1966) Chicken pox (~1949) Tinnitus (~1989) Hearing loss (~1969) Hemorrhoid (~1979) Colon polyps (~1979) Low testosterone (~2001) Myocardial infarction (~1989) Skin cancer (~2020) Coronary artery disease (~1989) Surgical History Anesthesia History of angioplasty History of left knee replacement (~2013) Family History Father History of heart disease Mother Cancer Social History details: (Chandni), 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 [email or web address] household members: spouse Smoking Status: Former smoker alcohol intake: current Smoking Status: Former smoker alcohol intake frequency: holidays/special occasions only Substance Use Type: does not use Exam Initial Vital Signs Initial Vital Signs: Vital Signs Temperature 97.1 F L 09/13/23 08:46 Pulse Rate 71 09/13/23 08:46 Respiratory Rate 20 09/13/23 08:46 Blood Pressure 160/69 H 09/13/23 08:46 Pulse Oximetry 98 09/13/23 08:46 Oxygen Delivery Method Room Air 09/13/23 08:46 Const: Awake, alert, no acute distress, nontoxic appearing Eyes: PERRL, EOMI, conjunctiva normal ENT: Atraumatic, dentition normal, mucous membranes moist Cardiac: regular rate, regular rhythm RESP: unlabored, clear bilaterally, no wheezing GI: Atraumatic, soft, nontender, nondistended, no rebound, no guarding MSK: Atraumatic, full range of motion, pulses equal Skin: Warm, Dry, intact, no rashes Neuro: AO x3, CN II-XII grossly intact, mild aphasia, no motor drift, no weakness, no sensory deficits Psych: affect normal, mood normal, not suicidal, not homicidal Course Orders Ordered: ED Orders 09/13/23 08:38 CT Stroke Stat XR chest 1V Stat Urine Drug Screen, Rapid Stat EKG-12 Lead Stat 09/13/23 08:50 Complete Blood Count AUTO DIFF Stat Comprehensive Metabolic Panel Stat Magnesium Stat PTT Partial Thromboplastin Eusebio Stat Prothrombin Time INR Stat Troponin & CK Cardiac Panel Stat 09/13/23 09:30 Ammonia (NH3) Stat Ondansetron HCl (Ondansetron 4 Mg/2 Ml Inj) 4 mg IV NOW PRN PRN Reason: Nausea And Vomiting Ondansetron HCl (Ondansetron 4 Mg Odt) 4 mg SL NOW PRN PRN Reason: Nausea And Vomiting Discontinued Medications Aspirin (Aspirin 81 Mg Chew Tab) 324 mg PO NOW ONE Stop: 09/13/23 09:29 Reevaluation(s) Reevaluation #1: Stroke alert for dysarthria. Taken immediately to CT scanner. Noncontrast brain CT negative for acute findings. CTA pending. Discussed patient's case with on-call Neurology at [facility]. Since the patient's deficits are overall mild and they are currently improving they do not recommend thrombolytics at this time. Recommend admission for stroke workup. Reevaluation #2: CTA negative for significant stenosis. Patient reassessed, speech is now clear and intelligible. Amenable to admission. Vital Signs Vital signs: Vital Signs - 8 hr 09/13/23 08:46 09/13/23 09:01 09/13/23 09:31 Temperature 97.1 F L Pulse Rate 71 66 63 Respiratory Rate 20 16 20 Blood Pressure 160/69 H 168/69 H 157/73 H Pulse Oximetry 98 95 94 Oxygen Delivery Method Room Air Room Air Room Air 09/13/23 10:00 09/13/23 10:01 09/13/23 10:01 Temperature Pulse Rate 63 63 Respiratory Rate 20 16 Blood Pressure 135/63 Pulse Oximetry 93 94 Oxygen Delivery Method MDM - Neuro Symptoms/Deficit Lab Data 09/13/23 08:50 09/13/23 08:50 Labs: Lab Results 09/13/23 09/13/23 Range/Units 08:50 09:30 WBC 7.3 (4.5-11.0) X10^3/uL RBC 4.55 (4.5-5.9) X10^6/uL Hgb 14.0 (13.5-17.5) g/dL Hct 40.8 L (41-53) % MCV 89.7 (80-100) fL MCH 30.7 (26-34) PG MCHC 34.2 (30-36) % RDW 14.6 (11.6-14.8) % Plt Count 127 L (150-400) X10^3/uL Neut % (Auto) 61.0 (50-75) % Lymph % (Auto) 24.9 L (25-40) % [place] % (Auto) 10.1 (3-14) % Eos % (Auto) 3.0 (2-4) % Baso % (Auto) 1.0 (0-2) % Neut # (Auto) 4500 (3758-3629) /uL Lymph # (Auto) 1800 (4024-3347) /uL [place] # (Auto) 700 (0-900) /uL Eos # (Auto) 200 (0-450) /uL Baso # (Auto) 100 (0-100) /uL PT 13.0 H (10.1-12.7) SECONDS INR 1.1 (0.9-1.3) APTT 30 (26-36) SECONDS Sodium 137 (137-145) mmol/L Potassium 3.5 (3.4-5.1) mmol/L Chloride 105 (98-107) mmol/L Carbon Dioxide 24 (22-32) mmol/L BUN 24 H (9-20) mg/dL Creatinine 1.16 (0.66-1.25) mg/dL Estimated GFR > 60 (>60) mL/min BUN/Creatinine Ratio 20.7 (6-22) Glucose 109 (80-110) mg/dL Calcium 8.6 (8.4-10.2) mg/dL Magnesium 1.9 (1.6-2.3) mg/dL Total Bilirubin 0.5 (0.2-1.3) mg/dL AST 28 (17-59) IU/L ALT 21 (<50) IU/L Alkaline Phosphatase 69 (38-126) U/L Ammonia < 9 L (9-30) umol/L Total Creatine Kinase 102 (55-170) U/L Troponin I < 0.012 (0.01-0.034) ng/mL Total Protein 6.6 (6.3-8.2) g/dL Albumin 3.7 (3.5-5.0) g/dL Globulin 2.9 (1.7-4.1) g/dL Albumin/Globulin Ratio 1.3 (1.0-2.8) Point of Care Testing Glucose POC 108 Discharge Plan Departure Patient Disposition: Admitted as Observation Clinical Impression: Dysarthria Admit Date/Time: 09/13/23 10:15 Admit Provider: Lalo Bob
[2023-09-13 09:00] LABS: Add Manual Diff / Slide Review NO; Basophils Absolute Auto 100 /uL (0-100); Eosinophils Absolute Auto 200 /uL (0-450); Hematocrit 40.8 % (41-53); Lymphocytes Absolute Auto 1800 /uL (1100-4500); Lymphocytes Percent Auto 24.9 % (25-40); Mean Corpuscular HGB Conc 34.2 % (30-36); Mean Corpuscular Hemoglobin 30.7 PG (26-34); Mean Corpuscular Volume 89.7 fL (80-100); Monocytes Absolute Auto 700 /uL (0-900); Monocytes Percent Auto 10.1 % (3-14); Neutrophils Absolute Auto 4500 /uL (1500-7000); Platelet Count 127 X10^3/uL (150-400); Red Blood Cell Count 4.55 X10^6/uL (4.5-5.9); Red Cell Distribution Width 14.6 % (11.6-14.8); White Blood Cell Count 7.3 X10^3/uL (4.5-11.0)
[2023-09-13 09:16] LABS: INR 1.1 (0.9-1.3)
[2023-09-13 09:19] LABS: PTT Partial Thromboplastin Tim 30 SECONDS (26-36)
[2023-09-13 09:21] LABS: Alanine Aminotransferase 21 IU/L (<50); Albumin 3.7 g/dL (3.5-5.0); Albumin Globulin Ratio 1.3 (1.0-2.8); Alkaline Phosphatase 69 U/L (38-126); Aspartate Aminotransferase 28 IU/L (17-59); BUN Creatinine Ratio 20.7 (6-22); Bilirubin Total 0.5 mg/dL (0.2-1.3); Blood Urea Nitrogen 24 mg/dL (9-20); Calcium 8.6 mg/dL (8.4-10.2); Carbon Dioxide 24 mmol/L (22-32); Chloride 105 mmol/L (98-107); Creatine Kinase 102 U/L (55-170); Estimated Glomerular Filt Rate > 60 mL/min (>60); Globulin 2.9 g/dL (1.7-4.1); Glucose 109 mg/dL (80-110); HEMOLYSIS < 15 (0-50); Magnesium 1.9 mg/dL (1.6-2.3); Potassium 3.5 mmol/L (3.4-5.1); Sodium 137 mmol/L (137-145); Total Protein 6.6 g/dL (6.3-8.2)
[2023-09-13 09:33] LABS: Troponin I < 0.012 ng/mL (0.01-0.034)
[2023-09-13 09:50] LABS: Ammonia (NH3) < 9 umol/L (9-30)
[2023-09-13 10:45] LABS: UR Morphine/Opiate cutoff 300 Negative (Negative); Ur Creatinine Normal (Normal); Ur Specific Gravity Normal (Normal); Urine Amphetamines Negative (Negative); Urine Barbiturates Negative (Negative); Urine Benzodiazepines Negative (Negative); Urine Cocaine Negative (Negative); Urine MDMA Negative (Negative); Urine Methadone Negative (Negative); Urine Methamphetamines Negative (Negative); Urine Oxycodone Negative (Negative); Urine Phencyclidine Negative (Negative); Urine Tetrahydrocannabinol Negative (Negative); Urine Tricyclic Antidepressant Negative (Negative); Urine pH Normal (Normal)
--- NOTE | 2023-09-13 10:45 | PC.NURSE ---
1000: Pt able to stand at bedside and get out of bed with only standby assist. Pt Denies dizziness and voided into a urinal without assistance.
--- NOTE | 2023-09-13 11:21 | DI.ECHO.S_ITS ---
[place] +---------+ [facility] +---------+ : : [address] : : : : [id number] : : : : Phone: [phone]+ Echocardiogram Report + + :Name: TITI NEGRETE Study Date: 09/13/2023 Height: 68 in : :[place] [employer] ReadingLocation: Weight: 238 lb : : Gender: Male BSA: 2.2 m2 : :: 1945 Age: 77 yrs BP: 121/71 mmHg: :Reason For Study: CVA : :Ordering Physician: YANY, : :OTIS Performed By: Shannen Melendez : :Referring: OTIS SLADE : + + Interpretation Summary The study quality was technically difficult. The left ventricle is normal in size. The left ventricular ejection fraction is normal. The ejection fraction is estimated to be 60-65%. The right ventricle is borderline dilated. The right ventricular systolic function is normal. The inferior vena cava was not well visualized. No significant valvular pathology seen. Procedure: A two-dimensional transthoracic echocardiogram with color flow and Doppler was performed. The study quality was technically difficult. The patient had an echocardiogram, but there is no comparison study available. A contrast injection of Definity was performed to improve assessment of LV function. The patient was in normal sinus rhythm during the exam. Left Ventricle: The left ventricle is normal in size. Left ventricular wall thickness is mildly increased. There is no thrombus. The ejection fraction is estimated to be 60-65%. The left ventricular ejection fraction is normal. There are no obvious focal wall motion abnormalities noted but poor endocardial definition reduces the sensitivity for the detection of such. Diastolic parameters suggest a relaxation abnormality of the left ventricle, consistent with probable normal filling pressures. Right Ventricle: The right ventricle is borderline dilated. The right ventricular systolic function is normal. Atria: The left atrial size is normal. Right atrial size is normal. The interatrial septum is not well visualized. Mitral Valve: The mitral valve is not well visualized. The mitral valve is grossly normal. There is no mitral valve stenosis. There is trace mitral regurgitation. Aortic Valve: The aortic valve is trileaflet. The aortic valve is grossly normal. There is no aortic valve stenosis. No aortic regurgitation is present. Tricuspid Valve: The tricuspid valve is not well visualized, but is grossly normal. There is no tricuspid stenosis. There is trace tricuspid regurgitation. Pulmonary artery pressures cannot be estimated because of the lack of a measurable TR jet velocity. Pulmonic Valve: The pulmonic valve is not well visualized. There is trace pulmonic regurgitation. Great Vessels: The aortic root is normal size. The ascending aorta is normal in size. The pulmonary artery is normal size. The inferior vena cava was not well visualized. Pericardium/ Pleura There is an anterior echo-free space consistent with a fat pad. MMode/2D Measurements & Calculations LVIDd: 4.8 cm LVOT diam: 2.2 cm LVIDs: 3.9 cm asc Aorta Diam: 3.3 cm FS: 18.9 % IVSd: 1.2 cm LVPWd: 1.1 cm LV cazares. diameter/BSA (cm/m^2): 2.2 LV sys. diameter/BSA (cm/m^2): 1.8 LA A2 area: 16.0 cm2 RA long axis: 5.5 cm LA A4 area: 11.7 cm2 RA area: 16.9 cm2 LA length (vol): 4.4 cm RA vol: 44.0 ml LA vol: 36.2 ml RA : 20.0 ml/m2 LA vol index: 16.5 ml/m2 RVD1 (basal): 4.0 cm TAPSE: 2.4 cm Doppler Measurements & Calculations Ao V2 max: 121.5 cm/sec LVOT Max Farhan: 73.0 cm/sec Ao V2 mean: 91.4 cm/sec LV V1 max P.1 mmHg Ao max P.9 mmHg LV V1 VTI: 17.5 cm Ao mean P.6 mmHg RYAN(I,D): 2.3 cm2 Ao V2 VTI: 29.7 cm RYAN(V,D): 2.3 cm2 sev ratio: 0.59 RYAN indexed to BSA (cm^2/m^2): 1.0 MV E max farhan: 63.1 cm/sec PA V2 max: 122.4 cm/sec MV A max farhan: 69.0 cm/sec PA V2 mean: 89.2 cm/sec MV E/A: 0.92 PA mean P.5 mmHg Med Peak E' Farhan: 7.4 cm/sec PA pr(Accel): 28.5 mmHg E/E' med: 8.5 Lat Peak E' Farhan: 9.4 cm/sec E/E' lat: 6.7 E/e' average: 7.6 MV dec time: 0.25 sec SV(LVOT): 67.2 ml Reading Physician:10:58 AM
--- NOTE | 2023-09-13 13:30 | PT.IIE ---
Surgical History (Last Reviewed 03/13/23 @ 05:54 by Ricardo Joiner MD) Anesthesia History of angioplasty History of left knee replacement (~2013) Medical History (Last Updated 03/13/23 @ 08:46 by Ricardo Joiner MD) Acne (~1959) BPH w urinary obs/LUTS Chicken pox (~1949) Chronic back pain Colon polyps (~1979) Coronary artery disease (~1989) COVID-19 virus infection Erectile dysfunction Essential hypertension GERD without esophagitis Hearing loss (~1969) Hemorrhoid (~1979) History of colonic polyps Impaired fasting glucose Low testosterone (~2001) Measles (~1966) Mixed hyperlipidemia Mumps (~1949) Myocardial infarction (~1989) Obesity (BMI 35.0-39.9 without comorbidity) Obstructive sleep apnea Primary osteoarthritis involving multiple joints Skin cancer (~2020) Stage 3a chronic kidney disease (CKD) Systolic CHF, chronic Tinnitus (~1989) Venous (peripheral) insufficiency Physical Therapy Inpatient Evaluation/Re-Eval M1 PT/OT-IP Prior Functional Status Start: 09/13/23 13:59 Freq: NEEDED Status: Active Protocol: Document 09/13/23 13:30 AB (Rec: 09/13/23 14:07 [email or web address]) Medical Review Prior Functional Status Medical History Reviewed Yes Communication able to make needs known Mobility and Gait pt stated that he is independent with all mobilities and ambulation without AD Social History Household Members spouse Living Arrangements Mobile home Number of Floors (Floors) One Floor Number of Stairs To Enter/Railing? ramp to enter Home Environment Standard Height Toilet,Walk in Shower,Ramp Home Equipment Grab Bars Near Toilet,Grab Bars In Shower Additional Social History Comment pt's limited with physical assistance she will be able to provide pt pt sleeps on a recliner M2 PT-IP Current Condition Start: 09/13/23 13:59 Freq: NEEDED Status: Active Protocol: Document 09/13/23 13:30 AB (Rec: 09/13/23 14:07 [email or web address]) Physical Therapy Current Condition Current Condition Evaluation Date 09/13/23 Treatment Diagnosis dysarthria; difficulty in walking Onset Date 09/13/23 M3 PT-IP Subjective Start: 09/13/23 13:59 Freq: NEEDED Status: Active Protocol: Document 09/13/23 13:30 AB (Rec: 09/13/23 14:07 AB [email or web address]) Subjective Physical Therapy Visit Type Type Initial Evaluation Visit Start Time 13:30 Visit Stop Time 13:55 Total Visit Minutes 25 Number of ASSISTANT FITNESS MANAGER Visits 0 Physical Therapy Visit Comments Patient Comments agreeable to do PT Therapy Pain Assessment Pain When Pain Assessed During Mobility Location Left Anterior Thigh Scale Used pain scale not stated Pain Management Techniques Distraction,Modification of Treatment M4 PT-IP Mobility and Gait Start: 09/13/23 13:59 Freq: NEEDED Status: Active Protocol: Document 09/13/23 13:30 AB (Rec: 09/13/23 14:07 AB [id number]) PT-Bed Mobility Assessment Supine to Sit Supine to Sit Standby Assistance,Head of Bed Elevated Sit to Supine Sit to Supine Standby Assistance,Head of Bed Elevated PT-Transfer Assessment Sit to and From Stand Sit to and from Stand Standby Assistance Equipment Transfer Assistive Device None Orthotic/Prosthetic Devices or Brace: No Comments Mobility Comments pt supine in bed. completed supine to sit SBA with HOB elevated. pt sleeps on a recliner at home. completed sit to stand sBA and ambulated in room without AD SBA ~ 60 ft. presents with antalgic gait with increase lateral lean to the R but without LOB. pt went back to bed SBA wit sit to supine with HOB elevated. informed pt that no further PT indicated at this time and pt agreed. nurse informed. Gait Assessment Gait Gait Assistance Required: Standby Assistance Distance (Feet) 60 Able to Maintain Weight Bearing Status Yes During Gait Assistive Devices Assistive Device None Orthotic/Prosthetic Devices or Brace: No Gait Deviations General Gait Pattern Antalgic Factors Limiting Gait Function Factors Limiting Gait Function Pain,Poor Balance PT-Balance Assessment Sitting Balance and Reactions Static Sitting Balance Ability Normal Dynamic Sitting Balance Ability Normal Standing Balance and Reactions Static Standing Balance Ability Good Dynamic Standing Balance Ability Good Device Used without AD M5 PT-IP Objective Assessments Start: 09/13/23 13:59 Freq: NEEDED Status: Active Protocol: Document 09/13/23 13:30 AB (Rec: 09/13/23 14:07 AB [id number]) Orientation Orientation/Cognition Level of Alertness Alert Orientation Name,Place,Situation Language Function Ability No Deficits Noted Safety Awareness Understands Safety Issues Memory Description No Deficits Noted Gross Range of Motion Lower Extremity ROM Assessment Within Functional Limits Strength Lower Extremity Strength Assessment Within Functional Limits Sensation Assessment Sensation Gross Sensation WNL Muscle Tone Muscle Tone WNL Yes M6 PT-IP Treatment Start: 09/13/23 13:59 Freq: NEEDED Status: Active Protocol: Document 09/13/23 13:30 AB (Rec: 09/13/23 14:07 AB [id number]) Physical Therapy Treatment Education Education Provided Safety M7 PT-IP Assessment and Plan Start: 09/13/23 13:59 Freq: NEEDED Status: Active Protocol: Document 09/13/23 13:30 AB (Rec: 09/13/23 14:07 AB [id number]) PT Summary Assessment and Plan Potential Rehabilitation Potential Good Status of Condition at Evaluation Stable Summary Assessment Summary pt is a 77 y/o M who presented to the ED due to dysarthria. pt admitted for further testing. PT eval completed and pt needing SBA with mobility without AD. SBA provided for safety but pt without LOB during ambulation without AD. No further PT needs at this time. Frequency of Treatment Frequency Of Treatment Discharge Recommendations To Nursing Amount of Assist Needed Standby Assistance Discharge Recommendations PT Discharge Recommendations Home Transportation Needs at Discharge Private Vehicle
--- NOTE | 2023-09-13 14:14 | OT.IP.EVAL ---
Addendum entered and electronically signed by Ciara Early OT 09/13/23 16:32: esign Original Note: Past Medical History (Last Reviewed 09/13/23 @ 15:54 by Lalo Bob MD) Acne (~1959) BPH w urinary obs/LUTS Chicken pox (~1949) Chronic back pain Colon polyps (~1979) Coronary artery disease (~1989) COVID-19 virus infection Erectile dysfunction Essential hypertension GERD without esophagitis Hearing loss (~1969) Hemorrhoid (~1979) History of colonic polyps Impaired fasting glucose Low testosterone (~2001) Measles (~1966) Mixed hyperlipidemia Mumps (~1949) Myocardial infarction (~1989) Obesity (BMI 35.0-39.9 without comorbidity) Obstructive sleep apnea Primary osteoarthritis involving multiple joints Skin cancer (~2020) Stage 3a chronic kidney disease (CKD) Systolic CHF, chronic Tinnitus (~1989) Venous (peripheral) insufficiency Surgical History (Last Reviewed 09/13/23 @ 15:54 by Lalo Bob MD) Anesthesia History of angioplasty History of left knee replacement (~2013) Occupational Therapy Inpatient Evaluation/Re-Eval M1 PT/OT-IP Prior Functional Status Start: 09/13/23 16:08 Freq: NEEDED Status: Active Protocol: Document 09/13/23 14:10 [facility] (Rec: 09/13/23 16:25 [facility] [id number]) Medical Review Prior Functional Status Medical History Reviewed Yes Communication able to make needs known Mobility and Gait pt stated that he is independent with all mobilities and ambulation without AD Activities of Daily Living and IADL's Pt states completely independent for all needs of ADL,IADL and drives. Social History Household Members spouse Living Arrangements Mobile home Number of Floors (Floors) One Floor Number of Stairs To Enter/Railing? ramp to enter Home Environment Standard Height Toilet,Walk in Shower,Ramp Home Equipment Grab Bars Near Toilet,Grab Bars In Shower Additional Social History Comment pt's limited with physical assistance she will be able to provide pt pt sleeps on a recliner M2 OT-IP Current Condition Start: 09/13/23 16:08 Freq: Status: Active Protocol: Document 09/13/23 14:10 [facility] (Rec: 09/13/23 16:25 [facility] [id number]) Occupational Therapy Current Condition Current Condition Evaluation Date 09/13/23 Treatment Diagnosis Dysarthria Diagnosis Onset Date 09/13/23 M3 OT- IP Subjective and Pain Start: 09/13/23 16:08 Freq: Status: Active Protocol: Document 09/13/23 14:10 [facility] (Rec: 09/13/23 16:25 [facility] [id number]) OT- Subjective Occupational Therapy Visit Type Type Initial Evaluation Visit Start Time 14:05 Visit Stop Time 15:18 Total Visit Minutes 17 Notes Pt seen for split times as getting an MRI. Occupational Therapy Visit Comments Patient Comments Pt agreed to work with OT. Patient/Caregiver Goals TO go home. OT Pain Assessment Pain When Pain Assessed During Mobility Pain Present Pain Present Pain Reported Location Left Anterior Thigh Description Pinching M4 OT- IP ADL's Start: 09/13/23 16:08 Freq: Status: Active Protocol: Document 09/13/23 14:10 [facility] (Rec: 09/13/23 16:25 [facility] [id number]) OT OOB-Slrb-Qyaodpe General Evaluation Self-Feeding Ability Independent OT ADL-Grooming General Evaluation Grooming Ability Independent OT ADL-Oral Care General Eval Oral Care Ability Independent OT ADL-Dressing General Eval Lower Body Dressing Ability Independent OT ADL-Toileting General Evaluation Toileting Ability Independent OT ADL-Bathing Comments OT Bathing Comments Not performed. M5 OT- IP IADL's Start: 09/13/23 16:08 Freq: Status: Active Protocol: Document 09/13/23 14:10 [facility] (Rec: 09/13/23 16:25 [facility] [id number]) OT-Instrumental Activities of Daily Living Home Safety Awareness Awareness of Need for Assistance at Home Good Awareness Ability to Problem Solve Emergency Able to Problem Solve Situations Medication Management Medication Management No Deficits Identified Money Management Money Management No Deficits Identified Meal Preparation Meal Preparation Comments Pt to be mindful of his right hand as slight decreased for proprioception and kineshthesia when eyes closed. Mill Dresser Mill Dresser Comments Pt to be mindful of his right hand as slight decreased for proprioceptionand kineshthesia when eyes closed. M6 OT- IP Functional Cognition Start: 09/13/23 16:08 Freq: Status: Active Protocol: Document 09/13/23 14:10 [facility] (Rec: 09/13/23 16:25 [facility] [id number]) Cognitive Factors Limiting Selfcare Function Cognitive Ability Level of Alertness Alert Patient Orientation Name,Age,Birthday,Month,Date, Year,Day of Week,Place, Situation Attention Span Ability Capable of Focused Attention, Capable of Sustained Attention Ability to Follow Commands Able to Follow Multi-Step Commands Memory Description No Deficits Noted Safety Awareness No Deficits Noted Cognitive Comments Cognitive Assessment Comments Pt having difficulty to find the on/off button for the TV. Pt scored 104 seconds on Trial Making Part B which implies mild impairment for visual attention, task switching, speed of processing, mental flexibility, and executive functioning. Pt scored 50th percent for his age. OT- Vision and Hearing OT- Hearing Assessment OT- Hearing Assessment WFL OT- Vision Assessment Visual Acuity Glasses All The Time Visual Attentiveness WFL Occular Pursuits WFL Visual Convergence WFL Visual Abbott WFL Diplopia Absent M7 OT- IP Mobility and Balance Start: 09/13/23 16:08 Freq: Status: Active Protocol: Document 09/13/23 14:10 [facility] (Rec: 09/13/23 16:25 [facility] [id number]) OT- Bed Mobility Assessment Supine to Sit Supine to Sit Assist Independent Sit to Supine Sit to Supine Assist Independent Scooting Scooting to Edge of Bed Independent OT-Transfer Assessment Sit to and From Stand Sit to and from Stand Independent Transfers Transfer Ability Independent Technique Transfer Destination Bed,Toilet,Wheelchair Transfer Technique Stand Step Pivot Devices Transfer Assistive Devices None Comments Mobility Comments Pt able to independently walk in the room and had slight right sway but no loss of balance while trying to get into and out of the bathroom. OT- Balance Assessment Sitting Balance and Reactions Static Sitting Balance Ability Normal Dynamic Sitting Balance Ability Normal Standing Balance and Reactions Static Standing Balance Ability Normal Dynamic Standing Balance Ability Good M8 OT- IP Objective Assessments Start: 09/13/23 16:08 Freq: Status: Active Protocol: Document 09/13/23 14:10 [facility] (Rec: 09/13/23 16:25 [facility] [id number]) OT Gross Range of Motion Upper Extremity Range of Motion Assessment Within Functional Limits ROM Impairments Grossly WFL OT Strength Comments Strength Comments WFL for BUE for age and lifestyle. Pt states had a fall on his left shoulder years ago which causes him pain at certain positions. OT- Coordination Assessment Upper Extremity Finger to Nose Test Within Functional Limits Finger Tapping Test Within Functional Limits OT-Muscle Tone Assessment Muscle Tone WNL Yes OT Sensation Assessment Comments Summary Comments Intact for light touch. M9 OT- IP Assessment and Plan Start: 09/13/23 16:08 Freq: Status: Active Protocol: Document 09/13/23 14:10 [facility] (Rec: 09/13/23 16:25 [facility] [id number]) OT Summary Assessment and Plan Potential Rehabilitation Potential Excellent Analytic Complexity at Evaluation Low Summary Progress Towards Goals Safe For Discharge Assessment Summary Pt low complexity and here due to dysarthria which has cleared up and pt feels that he is at his baseline. Pt is independent in his room for mobility and ADl needs. Pt just having light decrease/ delay in proprioception and kinesthesia with his right hand when eyes closed. Pt to go home when medically stable. Discharge pt from OT services . Treatment Plan OT Treatment Plan Discharge Planning Discharge Recommendations OT Discharge Recommendations Home Transportation Needs at Discharge Private Vehicle
--- NOTE | 2023-09-13 14:30 | DI.MRI.S_ITS ---
PROCEDURE: MR HEAD/BRAIN WO CON INDICATIONS: tia vs cva TECHNIQUE: Non-contrast axial T1 spin echo, axial T2 fast spin echo, sagittal and axial FLAIR, coronal T2 fast spin echo, axial gradient echo, axial diffusion and ADC through the brain. COMPARISON: [facility], CT, CT STROKE, 09/13/2023, 8:41. [facility], CT, CT ANGIO HEAD AND NECK, 09/13/2023, 8:41. FINDINGS: Image quality: Excellent. CSF spaces: Ventricles appear symmetric in size and shape. Basal cisterns are patent. No extra-axial fluid collections. Brain: No intracranial bleeds or mass effects. There is cerebral volume loss for age. There are periventricular and deep white matter chronic small vessel ischemic changes. Brainstem appears normal. Diffusion-weighted images show no acute ischemic insults. No chronic ischemic insults. Normal intravascular flow voids are present. Skull and face: Calvarial bone marrow is normal in signal. Orbits are normal. Sinuses: Sinuses and mastoids are clear. IMPRESSION: 1. No acute intracranial process. 2. Mild to moderate atrophy and chronic microvascular ischemic changes. Dictated by: Yolie Mcneill M.D. on 09/13/2023 at 17:10 Approved by: Yolie Mcneill M.D. on 09/13/2023 at 17:11
--- NOTE | 2023-09-13 15:53 | PM.HP.1 ---
History of Present Illness History of Present Illness Date Patient Seen: 09/13/23 Time Patient Seen: 12:00 Chief complaint: Stroke Narrative: Mr. Barnett is a 77M with PMH CAD s/p stent, CHFrEF who presents to the hospital with speech abnormality. He was in his normal state of health this morning. At 7:30a he noted he was trying to work the remote to the TV and he was unable to do so. He attempted to speak to his but spoke unintelligibly.. He noted no other symptoms, no facial droop, vision changes, headache, weakness. EMS brought him to the hospital and his speech was improving and clear. In the ED workup was done, vitals notable for afebrile, heart rate 70s, blood pressure 160s/60s. Labs reviewed by me and notable for WBC 7.3, hgb 14, plts 127. Creatinine 1.16. Trop negative. Chest xray with no acute process. CT head with no acute process. CT angio head/neck with no acute process. He was ordered for full dose aspirin. ED physician discussed case with stroke physician who noted because patient symtpoms had dramatically improved he was not indicated for TPA. He was admitted for further treatment. When I saw him on the floor he felt he was completely back to normal and his family agreed. [facility] Medical History Systolic CHF, chronic Stage 3a chronic kidney disease (CKD) COVID-19 virus infection Venous (peripheral) insufficiency Impaired fasting glucose History of colonic polyps Obesity (BMI 35.0-39.9 without comorbidity) Obstructive sleep apnea Primary osteoarthritis involving multiple joints Erectile dysfunction BPH w urinary obs/LUTS GERD without esophagitis Mixed hyperlipidemia Essential hypertension Acne (~1959) Chronic back pain Mumps (~1949) Measles (~1966) Chicken pox (~1949) Tinnitus (~1989) Hearing loss (~1969) Hemorrhoid (~1979) Colon polyps (~1979) Low testosterone (~2001) Myocardial infarction (~1989) Skin cancer (~2020) Coronary artery disease (~1989) Surgical History Anesthesia History of angioplasty History of left knee replacement (~2013) Family History Father History of heart disease Mother Cancer Social History details: (Chandni), 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 [employer] household members: spouse Smoking Status: Former smoker alcohol intake: current Meds Home Medications and Allergies Home Medications Medication Instructions Recorded Confirmed Type aspirin 81 mg chewable tablet 81 mg PO DAILY 03/29/22 09/13/23 History cholecalciferol (vitamin D3) 4,000 unit PO DAILY 09/19/22 09/13/23 History clopidogrel 75 mg PO DAILY 09/19/22 09/13/23 History isosorbide mononitrate 30 mg PO DAILY 09/19/22 09/13/23 History losartan 25 mg PO DAILY 09/19/22 09/13/23 History mecobalamin (vitamin B12) 1,000 mcg PO DAILY 09/19/22 09/13/23 History metoprolol succinate 100 mg PO DAILY 09/19/22 09/13/23 History nitroglycerin 0.4 mg sublingual 0.4 mg sublingual Q5M 09/19/22 09/13/23 History tablet omeprazole 20 mg PO DAILY 09/19/22 09/13/23 History rosuvastatin 40 mg PO DAILY 09/19/22 09/13/23 History spironolactone 25 mg PO DAILY 09/19/22 09/13/23 History tamsulosin 0.4 mg PO DAILY 09/19/22 09/13/23 History furosemide 25 mg PO DAILY 11/25/22 09/13/23 History empagliflozin 10 mg tablet 5 mg PO DAILY 09/13/23 09/13/23 History (Jardiance) Allergies Allergy/AdvReac Type Severity Reaction Status Date / Time niacin AdvReac Mild flushed Verified 09/13/23 09:29 skin Review of Systems Review of Systems Narrative: 14 systems reviewed and negative aside from what is noted in HPI Exam Vital Signs (past 8 hours): - 09/13/23 08:46 09/13/23 09:01 09/13/23 09:31 Temperature 97.1 F L Pulse Rate 71 66 63 Respiratory Rate 20 16 20 Blood Pressure 160/69 H 168/69 H 157/73 H Pulse Oximetry 98 95 94 Oxygen Delivery Method Room Air Room Air Room Air Oxygen Flow Rate 09/13/23 10:00 09/13/23 10:01 09/13/23 10:01 Temperature Pulse Rate 63 63 Respiratory Rate 20 16 Blood Pressure 135/63 Pulse Oximetry 93 94 Oxygen Delivery Method Oxygen Flow Rate 09/13/23 12:00 Temperature 97.8 F Pulse Rate 62 Respiratory Rate 18 Blood Pressure 121/71 Pulse Oximetry 96 Oxygen Delivery Method Oxygen Flow Rate 0 Oxygen Delivery Method Room Air Oxygen Flow Rate 0 Narrative Exam Narrative: GEN: no acute distress HEENT: PERRL, moist mucous membranes CV: regular rate and rhythm, no murmurs PULM: clear bilaterally ABD: soft, nontender, nondistended, no organomegaly EXT: warm and well perfused with no edema NEURO: awake, alert, oriented, no facial droop, normal sensation, CN 2-12 intact, upper and lower extremities 5/5 strength Objective Labs 09/13/23 08:50 09/13/23 08:50 Labs: Laboratory Results - last 24 hr 09/13/23 09/13/23 09/13/23 08:50 09:30 10:10 WBC 7.3 RBC 4.55 Hgb 14.0 Hct 40.8 L MCV 89.7 MCH 30.7 MCHC 34.2 RDW 14.6 Plt Count 127 L Neut % (Auto) 61.0 Lymph % (Auto) 24.9 L [place] % (Auto) 10.1 Eos % (Auto) 3.0 Baso % (Auto) 1.0 Neut # (Auto) 4500 Lymph # (Auto) 1800 [place] # (Auto) 700 Eos # (Auto) 200 Baso # (Auto) 100 PT 13.0 H INR 1.1 APTT 30 Sodium 137 Potassium 3.5 Chloride 105 Carbon Dioxide 24 BUN 24 H Creatinine 1.16 Estimated GFR > 60 BUN/Creatinine Ratio 20.7 Glucose 109 Calcium 8.6 Magnesium 1.9 Total Bilirubin 0.5 AST 28 ALT 21 Alkaline Phosphatase 69 Ammonia < 9 L Total Creatine Kinase 102 Troponin I < 0.012 Total Protein 6.6 Albumin 3.7 Globulin 2.9 Albumin/Globulin Ratio 1.3 U Opiates 300ng/mL cut Negative Ur Oxycodone Screen Negative Urine Methadone Screen Negative Ur Barbiturates Screen Negative U Tricyclic Antidepress Negative Ur Phencyclidine Scrn Negative Ur Amphetamines Screen Negative U Methamphetamines Scrn Negative Ur MDMA Scrn (Ecstasy) Negative U Benzodiazepines Scrn Negative Urine Cocaine Screen Negative U Marijuana (THC) Screen Negative Assessment & Plan Assessment & Plan narrative: 1. Acute dysarthria -suspect etiology is TIA vs CVA -check NIH q4h -CT head negative for acute process, CT angio head/neck negative for acute process -ED physician discussed with stroke physician, and because of drastic improvement in symptoms no indication for TPA -monitor on tele -ECHO and MRI ordered -check lipids, a1c -PT, OT eval -already on aspirin, plavix, statin and will continue -allow permissive hypertension 2. CAD s/p stents -continue aspirin, plavix, statin -contine imdur 3. chronic systolic chf -hold lasix for today -likely restart tomorrow -continue metoprolol CODE: Full Proxy: Chandni White, I have discussed plan and obtained history with patient. I have discussed plan of care with ED physician and bedside nurse. I have reviewed labs, imaging. Quality VTE Deep Vein Thrombosis/Pulmonary Embolism Present on Admission: No MIPS - Meds 'Current medications' to include all prescriptions, [id number] products, herbals, cannabis/cannabidiol products, and vitamin/mineral/dietary (nutritional) supplements. I have utilized all available resources to obtain, update, or review the patient?s current medications. [If Yes, STOP here]: Yes
[2023-09-14] VITALS: BP 117/55; PULSE 60; RESP 17; TEMP 35.9; O2SAT 98
[2023-09-14 05:14] LABS: Add Manual Diff / Slide Review NO; Basophils Absolute Auto 0 /uL (0-100); Basophils Percent Auto 0.6 % (0-2); Eosinophils Absolute Auto 300 /uL (0-450); Eosinophils Percent Auto 3.6 % (2-4); Hematocrit 43.5 % (41-53); Hemoglobin 14.7 g/dL (13.5-17.5); Lymphocytes Absolute Auto 1700 /uL (1100-4500); Lymphocytes Percent Auto 22.9 % (25-40); Mean Corpuscular HGB Conc 33.7 % (30-36); Mean Corpuscular Hemoglobin 29.8 PG (26-34); Mean Corpuscular Volume 88.5 fL (80-100); Monocytes Absolute Auto 700 /uL (0-900); Monocytes Percent Auto 9.5 % (3-14); Neutrophils Absolute Auto 4600 /uL (1500-7000); Neutrophils Percent Auto 63.4 % (50-75); Platelet Count 132 X10^3/uL (150-400); Red Blood Cell Count 4.92 X10^6/uL (4.5-5.9); Red Cell Distribution Width 14.7 % (11.6-14.8); White Blood Cell Count 7.3 X10^3/uL (4.5-11.0)
[2023-09-14 05:23] LABS: BUN Creatinine Ratio 19.4 (6-22); Blood Urea Nitrogen 21 mg/dL (9-20); Calcium 8.7 mg/dL (8.4-10.2); Carbon Dioxide 26 mmol/L (22-32); Chloride 105 mmol/L (98-107); Cholesterol 115 mg/dL (140-199); Estimated Glomerular Filt Rate > 60 mL/min (>60); Glucose 95 mg/dL (80-110); HDL Cholesterol 35 mg/dL (40-60); HEMOLYSIS < 15 (0-50); LDL Cholesterol Calculated 57 mg/dL (<100); Potassium 3.6 mmol/L (3.4-5.1); Sodium 139 mmol/L (137-145); Triglycerides 115 mg/dL (35-150)
[2023-09-14 05:41] LABS: Hemoglobin A1C% w Est Avg Glu 6.2 % (4.0-6.0)
[2023-09-14 06:00] VITALS: BP 131/63; PULSE 58; RESP 18; TEMP 36.4; O2SAT 95
[2023-09-14 09:00] VITALS: BP 126/65; PULSE 55; RESP 16; O2SAT 97
[2023-09-14 09:32] VITALS: BP 126/65; PULSE 55
[2023-09-14] MEDS: METOPROLOL ER 50 MG TABLET 100 MG PO (09:32)
[2023-09-14] MEDS: ASPIRIN 81 MG CHEW TAB PO (09:32)
[2023-09-14] MEDS: CLOPIDOGREL 75 MG TABLET PO (09:33)
[2023-09-14] MEDS: ISOSORBIDE MONONITRATE ER 30 MG TABLET PO (09:33)
[2023-09-14] MEDS: ENOXAPARIN 40 MG/0.4 ML SYRINGE SUBCUT (09:33)
--- NOTE | 2023-09-14 09:59 | ST.IPCSEOM ---
Visit Care Team Role Provider Type Ricardo Joiner MD Primary Care Provider Physician Specialty: Internal Medicine Address: [address] [place] [address], [id number] Email: [email or web address] Merly Galvan MD Emergency Provider Physician Referring Provider Specialty: Emergency Medicine Address: [address] [place] [address], [id number] Email: [email or web address] Lalo Bob MD Admit Provider Physician Attending Provider Specialty: Hospitalist Address: [address] [place] [address], [id number] Fax: Email: [email or web address] Medical History (Last Reviewed 09/13/23 @ 15:54 by Lalo Bob MD) Acne (Medical ~1959) BPH w urinary obs/LUTS (Medical) Chicken pox (Medical ~1949) Chronic back pain (Medical) Colon polyps (Medical ~1979) Coronary artery disease (Medical ~1989) COVID-19 virus infection (Medical) Erectile dysfunction (Medical) Essential hypertension (Medical) GERD without esophagitis (Medical) Hearing loss (Medical ~1969) Hemorrhoid (Medical ~1979) History of colonic polyps (Medical) Impaired fasting glucose (Medical) Low testosterone (Medical ~2001) Measles (Medical ~1966) Mixed hyperlipidemia (Medical) Mumps (Medical ~1949) Myocardial infarction (Medical ~1989) Obesity (BMI 35.0-39.9 without comorbidity) (Medical) Obstructive sleep apnea (Medical) Primary osteoarthritis involving multiple joints (Medical) Skin cancer (Medical ~2020) Stage 3a chronic kidney disease (CKD) (Medical) Systolic CHF, chronic (Medical) Tinnitus (Medical ~1989) Venous (peripheral) insufficiency (Medical) Speech-Language Pathology Swallow Evaluation 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 Clinical Swallow Evaluation Start: 09/13/23 13:31 Freq: Status: Active Protocol: Document 09/13/23 13:32 MA (Rec: 09/13/23 13:46 JOHNY [id number]) Clinical Swallow Evaluation Session Time Visit Start Time 13:15 Visit Stop Time 13:45 Total Visit Minutes 30 Visit Information Visit Number 1 Referral Referring Provider Lalo Bob Reason for Referral Slurred speech upon admission, possible CVA Setting Assessment Location Acute Care Visit Type Note Type Initial evaluation Patient Information Identification Type Name History 77-year-old male with history of previous [place], congestive heart failure, on Plavix presents by EMS from home for garbled speech. Patient woke up this morning normally and had a conversation with his . Of note, patient does not currently have his teeth in, but EMS reports states that patient is normally conversant without his teeth. At 730am patient attempted to speak to but his speech was noted to be garbled and unintelligible. En route patient's Accu-Chek 122. EMS reported that just as a pulled into the hospital patient was able to intelligibly state ?I do not like going to hospitals?. Pt with PMHx significant for: Systolic CHF, chronic Stage 3a chronic kidney disease (CKD) COVID-19 virus infection Venous (peripheral) insufficiency Impaired fasting glucose History of colonic polyps Obesity (BMI 35.0-39.9 without comorbidity) Obstructive sleep apnea Primary osteoarthritis involving multiple joints Erectile dysfunction BPH w urinary obs/LUTS GERD without esophagitis Mixed hyperlipidemia Essential hypertension Acne (~1959) Chronic back pain Mumps (~1949) Measles (~1966) Chicken pox (~1949) Tinnitus (~1989) Hearing loss (~1969) Hemorrhoid (~1979) Colon polyps (~1979) Low testosterone (~2001) Myocardial infarction (~1989) Skin cancer (~2020) Coronary artery disease (~1989 ) Pt referred for speech evaluation d/t Pt admitted with slurred speech and possible CVA. Subjective Observations Pt seen for 1:1 dysphagia evaluation. Pt awake, alert, sitting upright in bed in room with family present. ST communicated with nurse Burrell prior to entering Pt's room who reported Pt slurred speech has resolved with no observed difficulties with swallowing. Pt and Pt family report speech is at baseline. Pt Ox3. Pt reports hx of coughing when drinking thin liquids, however no recent dx of PNA in the past year. Reported by Patient/Caregiver Pain/Discomfort No Current Diet Regular (IDDSI 7) Baseline Feeding Method Independent in self-feeding The IDDSI Framework Protocol: IDDSI.1 Objective Assessment Mental Status Alert,Responsive,Cooperative Oral Integrity WFL Dentition Upper dentures/partials,Lower dentures/partials Lip Function Within normal limits Observation of Lips at Rest Symmetrical Pucker Within normal limits Tongue Function Within normal limits Observations of Tongue at Rest Within normal limits Tongue Protrusion Within normal limits Food and Liquid Trials Position During Assessment Upright (90 degrees) Liquids Trialed Thin (IDDSI 0) Solid Trials Regular (IDDSI 7) Administration Type Straw Oral Impairment Mildly impaired Oral Phase Comments Pt consumed about 6 oz of thin water via straw and 2 nikolai crackers. Oral phase for thin water via straw with single and consecutive sips characterized by adequate suction, good oral acceptance and containment, suspected loss of bolus resulting in premature spillage. For regular solids Pt demonstrated adequate bite size, prolonged mastication however adequate bolus formation and control, timely ap transport. Pharyngeal Impairment Mildly impaired Pharyngeal Phase Comments For thin liquids Pt demonstrated suspected delay in swallow, 1x throat clear, clear vocal quality, no overt s/s of aspiration. Pt with no overt s/s of aspiration with regular solid. Fatigue/Endurance Endurance WNL The IDDSI Framework Protocol: IDDSI.1 Findings Swallowing Function Oropharyngeal phase dysphagia Swallowing Function Comments Mild oral dysphagia and suspected mild pharyngeal dysphagia Severity of Swallow Impairment Mildly impaired Contributing Factors to Swallow Mastication inefficiency Impairment Prognosis Good Based on Cognitive status,Family support Recommendations Instrumental Assessment No Swallowing Treatment No Recommended Solids Regular (IDDSI 7) Recommended Liquids Thin (IDDSI 0) Other Recommendations ST recommends regular solids and thin liquids. Pt at baseline with speech/language/ cognition. No further evaluation warranted. ST recommends re-evaluation of swallow if increase s/s of dysphagia occur and/or changes in respiratory status. Safety Precautions/Swallowing Remain upright (90 degrees) Recommendations during all oral intake,Upright position at least 30 minutes after meals,Small bites and sips when eating,Slow rate; swallow between bites, Alternate liquids and solids Medication Recommendations As Tolerated Education Patient/Caregiver Education Described results of evaluation,Patient expressed understanding of evaluation
--- NOTE | 2023-09-14 10:26 | CM.DANOTE ---
Initial DCP Assessment Note Pt is a 77 yo male, resident of [place], arrives with speech abnormality, admitted observation for stroke r/o PCP: Ricardo Joiner Payer: [employer] Reviewed chart, pt discussed in multidisciplinary rounds this morning. MRI Neg for acute CVA, echo done and hospitalist waiting for this to be read. Patient is likely to discharge later today. Met w/patient, introduced self and role. Patient lives w/spouse in [place], independent in all regards, drives. Patient denies needs from this [employer]. No barriers identified at this time to patient's safe discharge home w/family to assist; close outpatient f/u recommended. CM team will plan to follow closely in case any DC needs or concerns arise. SARITA Rivas Discharge Planning/Care Management CM Discharge Assessment Start: 09/14/23 10:23 Freq: Status: Active Protocol: Document 09/14/23 10:23 BRAD (Rec: 09/14/23 10:26 BRAD [id number]) Discharge Planning Assessment Assigned Wire Brush Maker SARITA Nguyễn DPOA/Assigned Designee Name Chandni Barnett, spouse Contact Information [phone] Advance Directives? Yes Advance Directives on File No History Provided By Patient,Medical Record Prior Living Arrangements Mobile home Household Members spouse Type of transporation used prior to Drives own vehicle admit Independent with ADL's Yes Is patient alert and oriented? Yes Comment Home w/sp Barriers to Discharge No Discharge Plan Home Transportation Arrangement Spouse or friend Referrals Initiated None needed Whiteboard Updated in Patient Room with Yes name and ext. # of Wire Brush Maker
--- NOTE | 2023-09-14 11:15 | P.DS_ITS ---
History of Present Illness History of Present Illness Date Patient Seen: 09/13/23 Time Patient Seen: 12:00 Chief complaint: Stroke Narrative: Mr. Barnett is a 77M with PMH CAD s/p stent, CHFrEF who presents to the hospital with speech abnormality. He was in his normal state of health this morning. At 7:30a he noted he was trying to work the remote to the TV and he was unable to do so. He attempted to speak to his but spoke unintelligibly.. He noted no other symptoms, no facial droop, vision changes, headache, weakness. EMS brought him to the hospital and his speech was improving and clear. In the ED workup was done, vitals notable for afebrile, heart rate 70s, blood pressure 160s/60s. Labs reviewed by me and notable for WBC 7.3, hgb 14, plts 127. Creatinine 1.16. Trop negative. Chest xray with no acute process. CT head with no acute process. CT angio head/neck with no acute process. He was ordered for full dose aspirin. ED physician discussed case with stroke physician who noted because patient symtpoms had dramatically improved he was not indicated for TPA. He was admitted for further treatment. When I saw him on the floor he felt he was completely back to normal and his family agreed. Discharge Providers Provider Date of admission: 09/13/23 10:15 Discharge Date: 09/14/23 Primary care physician: Ricardo Joiner MD Consults: 09/13/23 11:21 Consult to Occupational Therapy Evaluate & Treat Comment: Physician Instructions: Evaluate and treat Consult to Physical Therapy Evaluate & Treat Comment: Physician Instructions: Evaluate and Treat Consult to Speech Therapy Evaluate & Treat Comment: Physician Instructions: Evaluate and treat Discharge provider: Rudolph Zapata DO Summary Hospital Course Discharge Diagnosis: 1. Acute dysarthria -suspected etiology is TIA -CT head negative for acute process, CT angio head/neck negative for acute process -ED physician discussed with stroke physician, and because of drastic improvement in symptoms no indication for TPA -ECHO and MRI ordered, reassuring with no evidence of stroke or intracardiac shunt/clot, EF 60-65% -lipids with LDL at goal, a1c 6.2% -PT, OT eval cleared for home -already on aspirin, plavix, statin and will continue -allow permissive hypertension 2. CAD s/p stents -continue aspirin, plavix, statin -contine imdur 3. chronic systolic chf -hold lasix for today -restarted on dc -continue metoprolol Hospital Course: Admitted for acute dysarthria and word salad which resolved. TIA suspected. MRI brain normal. Echo normal. LDL and A1c at goal. Will continue on DAPT. PT/OT cleared for home. Exam Vital Signs (past 8 hours): - 09/14/23 06:00 09/14/23 09:00 09/14/23 09:32 Temperature 97.6 F Pulse Rate 58 L 55 L 55 L Respiratory Rate 18 16 Blood Pressure 131/63 126/65 126/65 Pulse Oximetry 95 97 Oxygen Flow Rate 0 Oxygen Delivery Method Room Air Oxygen Flow Rate 0 Narrative Exam Narrative: GEN: no acute distress HEENT: PERRL, moist mucous membranes CV: regular rate and rhythm, no murmurs PULM: clear bilaterally ABD: soft, nontender, nondistended, no organomegaly EXT: warm and well perfused with no edema NEURO: awake, alert, oriented, no facial droop, normal sensation, CN 2-12 intact, upper and lower extremities 5/5 strength Objective Labs 09/14/23 04:48 09/14/23 04:48 Labs: Laboratory Results - last 24 hr 09/14/23 04:48 WBC 7.3 RBC 4.92 Hgb 14.7 Hct 43.5 MCV 88.5 MCH 29.8 MCHC 33.7 RDW 14.7 Plt Count 132 L Neut % (Auto) 63.4 Lymph % (Auto) 22.9 L [place] % (Auto) 9.5 Eos % (Auto) 3.6 Baso % (Auto) 0.6 Neut # (Auto) 4600 Lymph # (Auto) 1700 [place] # (Auto) 700 Eos # (Auto) 300 Baso # (Auto) 0 Sodium 139 Potassium 3.6 Chloride 105 Carbon Dioxide 26 BUN 21 H Creatinine 1.08 Estimated GFR > 60 BUN/Creatinine Ratio 19.4 Glucose 95 Hemoglobin A1c 6.2 H Calcium 8.7 Triglycerides 115 Cholesterol 115 L LDL Cholesterol, Calc 57 HDL Cholesterol 35 L PFSH Medical History Systolic CHF, chronic Stage 3a chronic kidney disease (CKD) COVID-19 virus infection Venous (peripheral) insufficiency Impaired fasting glucose History of colonic polyps Obesity (BMI 35.0-39.9 without comorbidity) Obstructive sleep apnea Primary osteoarthritis involving multiple joints Erectile dysfunction BPH w urinary obs/LUTS GERD without esophagitis Mixed hyperlipidemia Essential hypertension Acne (~1959) Chronic back pain Mumps (~1949) Measles (~1966) Chicken pox (~1949) Tinnitus (~1989) Hearing loss (~1969) Hemorrhoid (~1979) Colon polyps (~1979) Low testosterone (~2001) Myocardial infarction (~1989) Skin cancer (~2020) Coronary artery disease (~1989) Surgical History Anesthesia History of angioplasty History of left knee replacement (~2013) Family History Father History of heart disease Mother Cancer Social History details: (Chandni), 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 No new stroke was seen on brain MRI. You are already on all the correct medications so continue these. Discharge orders & Medications Prescriptions: Continued aspirin 81 mg tablet,chewable 81 mg PO DAILY cholecalciferol (vitamin D3) 4,000 unit PO DAILY clopidogrel 75 mg PO DAILY isosorbide mononitrate 30 mg PO DAILY losartan 25 mg PO DAILY mecobalamin (vitamin B12) 1,000 mcg PO DAILY metoprolol succinate 100 mg PO DAILY omeprazole 20 mg PO DAILY rosuvastatin 40 mg PO DAILY spironolactone 25 mg PO DAILY tamsulosin 0.4 mg PO DAILY nitroglycerin 0.4 mg tablet, sublingual 0.4 mg sublingual Q5M Rx Instructions: do not exceed 3 doses per episode Jardiance 10 mg Tablet 5 mg PO DAILY Rx Instructions: 1/2 TAB furosemide 25 mg PO DAILY Follow up/Referrals: Ricardo Joiner MD [Primary Care Provider] - 2 Weeks Visit Report/Discharge Packet Stand Alone Forms: Patient Portal/API, Stroke Signs & Symptoms Discharge Data Primary Care Provider: Ricardo Joiner V Attending Provider: Lalo Bob Admbrynn Date/Time: 09/13/23 10:15 Quality VTE Deep Vein Thrombosis/Pulmonary Embolism Present on Admission: No
--- NOTE | 2023-09-14 12:43 | PC.NURSE ---
Pt discharged home at 1230, escorted off floor in wheelchair accompanied by and hospital staff. IV removed, tele d/c'd, discharge teaching completed including worsening symptoms and follow up appointments. Questions answered. Patient left the room with all belongings.
== END 2023-09-14 12:45 | disposition home or self-care (01) ==
LOC: ED 09:48 → AC 10:16
PROVIDERS: Admitting Provider Internal Medicine; Emergency Provider Emergency Medicine; PCP Internal Medicine; Referring Provider Emergency Medicine; Visit Provider Internal Medicine
DX: I13.0 Hypertensive heart and chronic kidney disease with heart failure and stage 1 through stage 4 chronic kidney disease, or unspecified chronic kidney disease (principal); R47.1 Dysarthria and anarthria; N18.31 Chronic kidney disease, stage 3a; I50.22 Chronic systolic (congestive) heart failure; I25.2 Old myocardial infarction; I25.10 Atherosclerotic heart disease of native coronary artery without angina pectoris; Z79.82 Long term (current) use of aspirin; Z79.02 Long term (current) use of antithrombotics/antiplatelets
CPT/HCPCS: 36415; 70450; 70496; 70498; 70551; 71045; 80048; 80053; 80061; 80305; 81003; 82140; 82550; 82962; 83036; 83735; 84484; 85025; 85610; 85730; 92526; 93005; 93010; 93306; 96372; 97161; 97165; 99285; G0378; J1650; Q9957